=== PATIENT | female | born 1990 | race African-American/Black ===

== ENCOUNTER 2021-03-23 15:51 | Observation (INO) | payer MEDICAID ==
[2021-03-23] MEDS ORDERED: Ondansetron 4 MG/2 ML SDV IVPUSH ONE (15:57)
[2021-03-23] MEDS ORDERED: Sodium Chloride 0.9% 1,000 ML IV ONE (15:57)
[2021-03-23] MEDS ORDERED: Promethazine 25 MG/ML SDV IM ONE (16:20)
[2021-03-23 16:25] LABS: ANION GAP 12.6 meq/L (7-15); CHLORIDE,CL 101 mmol/L (98-107); SODIUM,NA 135 mmol/L (136-145)
[2021-03-23] MEDS ORDERED: Potassium Chloride 10 MEQ Tab.ER PO ONE ×3 (16:56→21:00)
[2021-03-23] MEDS ORDERED: Magnesium Oxide 400 MG Tab PO ONE ×2 (16:57→20:00)
--- NOTE | 2021-03-23 17:04 | EDM.PDOC ---
ED HPI GENERAL MEDICAL PROBLEM - General Chief Complaint: Gastrointestinal Problem Stated Complaint: nausea/vomiting Time Seen by Provider: 03/23/21 16:13 Source of Information: Reports: Patient History Limitations: Reports: No Limitations - History of Present Illness INITIAL COMMENTS - FREE TEXT/NARRATIVE: Patient comes to ER with complaints of nausea/emesis over past week. Much worse yesterday and today. Diaphoretic when vomiting. No fever. Single loose stool today. No URI complaints. No UTI complaints. No abdominal pain/flank pain. No other acute changes reported. - Related Data Allergies Allergy/AdvReac Type Severity Reaction Status Date / Time No Known Allergies Allergy Verified 03/23/21 16:23 Home Meds: Home Meds Naltrexone 50 mg PO DAILY 03/23/21 [History] PARoxetine HCl [Paxil] 40 mg PO DAILY 03/23/21 [History] PARoxetine [Paxil] 10 mg PO DAILY 03/23/21 [History] Past Medical History Psychiatric History: Reports: Anxiety, Depression, PTSD Endocrine/Metabolic History: Reports: Obesity/BMI 30+ ED ROS GENERAL - Review of Systems Review Of Systems: See Below Constitutional: Reports: Malaise, Diaphoresis, Decreased Appetite. Denies: Fever, Chills, Weakness, Fatigue, Night Sweats HEENT: Reports: No Symptoms Respiratory: Reports: No Symptoms Cardiovascular: Reports: No Symptoms GI/Abdominal: Reports: Diarrhea, Nausea, Vomiting. Denies: Abdominal Pain, Black Stool, Bloody Stool, Constipation, Hematemesis Musculoskeletal: Reports: No Symptoms Skin: Reports: No Symptoms Neurological: Reports: No Symptoms Psychiatric: Reports: No Symptoms Hematologic/Lymphatic: Reports: No Symptoms Immunologic: Reports: No Symptoms ED EXAM, GENERAL - Physical Exam Exam: See Below Exam Limited By: No Limitations General Appearance: Alert, Obese, Other (actively vomiting) Eye Exam: Bilateral Eye: EOMI, PERRL Ears: Hearing Grossly Normal Nose: No: Nasal Deformity, Nasal Swelling, Nasal Drainage Throat/Mouth: Normal Lips, Normal Voice, No Airway Compromise Head: Atraumatic, Normocephalic Neck: Supple, Non-Tender, Full Range of Motion Respiratory/Chest: No Respiratory Distress, Lungs Clear, Normal Breath Sounds, No Accessory Muscle Use, Chest Non-Tender Cardiovascular: Regular Rate, Rhythm, No Murmur GI/Abdominal: Soft, Non-Tender, No Distention, Abnormal Bowel Sounds (diminished throughout) (Female) Exam: Deferred Rectal (Female) Exam: Deferred Back Exam: Normal Inspection Extremities: Normal Inspection Neurological: Alert, Oriented, Normal Cognition, Normal Gait, No Motor/Sensory Deficits Psychiatric: Normal Affect, Normal Mood Skin Exam: Warm, Dry, Intact, Normal Color Course - Orders/Labs/Meds Orders: Active Orders 24 hr Category Date Time Status Communication Order [RC] STAT Care 03/23/21 16:20 Ordered CORONAVIRUS COVID-19 ALBERTO [MOLEC] Stat Lab 03/23/21 16:25 Received Magnesium Oxide Med 03/23/21 16:57 Once 400 mg PO ONETIME ONE Potassium Chloride [Klor-Con 10] Med 03/23/21 16:56 Once 20 meq PO ONETIME ONE Sodium Chloride 0.9% [Saline Flush] Med 03/23/21 15:57 Active 10 ml FLUSH ASDIRECTED PRN Saline Lock Insert [OM.PC] Routine Oth 03/23/21 15:57 Ordered Medication Orders Sodium Chloride (Sodium Chloride 0.9% 10 Ml Syringe) 10 ml FLUSH ASDIRECTED PRN PRN Reason: Keep Vein Open Labs: Laboratory Tests 03/23/21 03/23/21 03/23/21 Range/Units 16:05 16:05 16:28 WBC 10.3 H (4.0-10.2) K/uL RBC 4.82 (3.77-5.09) M/uL Hgb 13.3 (11.7-15.5) g/dL Hct 39.2 (34.0-46.0) % MCV 81.3 L (84.0-98.0) fL MCH 27.6 L (28.2-33.3) pg MCHC 33.9 (31.7-36.0) g/dL RDW 12.7 (11.2-14.1) % Plt Count 296 (150-350) K/uL Neut % (Auto) 67.9 (45.0-80.0) % Lymph % (Auto) 23.1 (10.0-50.0) % [place] % (Auto) 8.7 (2.0-14.0) % Eos % (Auto) 0.1 (0.0-5.0) % Baso % (Auto) 0.2 (0.0-2.0) % Neut # (Auto) 7.01 H (1.40-7.00) K/uL Lymph # (Auto) 2.38 (0.50-3.50) K/uL [place] # (Auto) 0.90 (0.00-1.00) K/uL Eos # (Auto) 0.01 (0.00-0.50) K/uL Baso # (Auto) 0.02 (0.00-0.20) K/uL Sodium 135 L (136-145) mmol/L Potassium 3.2 L (3.5-5.1) mmol/L Chloride 101 (98-107) mmol/L Carbon Dioxide 24.6 (21.0-32.0) mmol/L Anion Gap 12.6 (7-15) meq/L BUN 7 (7-18) mg/dL Creatinine 0.71 (0.51-1.17) mg/dL Est Cr Clr Drug Dosing TNP Estimated GFR (MDRD) > 60 mL/min Glucose 109 H (70-99) mg/dL Calcium 9.4 (8.5-10.1) mg/dL Magnesium 1.7 L (1.8-2.4) mg/dL Total Bilirubin 0.7 (0.2-1.0) mg/dL AST 12 L (15-37) U/L ALT 18 (12-78) U/L Alkaline Phosphatase 82 (46-116) IU/L Total Protein 8.8 H (6.4-8.2) g/dL Albumin 4.2 (3.4-5.0) g/dL Specimen Type Urinvoid Urine Color Dark yellow Urine Appearance Cloudy Urine pH 5.5 (5.0-9.0) Ur Specific [place] >= 1.030 (1.005-1.030) Urine Protein >=300 H (NEGATIVE) mg/dL Urine Glucose (UA) Negative (NEGATIVE) mg/dL Urine Ketones 80 H (NEGATIVE) mg/dL Urine Occult Blood Moderate H (NEGATIVE) Urine Nitrite Negative (NEGATIVE) Urine Bilirubin Small H (NEGATIVE) Urine Urobilinogen 1.0 (0.2-1.0) E.U./dL Ur Leukocyte Esterase Negative (NEGATIVE) Urine RBC 5-10 H /HPF Urine WBC 0-5 /HPF Ur Epithelial Cells Many H /LPF Urine Bacteria Many H (NONE TO FEW) /HPF Urine HCG, Qual 03/23/21 Range/Units 16:28 WBC (4.0-10.2) K/uL RBC (3.77-5.09) M/uL Hgb (11.7-15.5) g/dL Hct (34.0-46.0) % MCV (84.0-98.0) fL MCH (28.2-33.3) pg MCHC (31.7-36.0) g/dL RDW (11.2-14.1) % Plt Count (150-350) K/uL Neut % (Auto) (45.0-80.0) % Lymph % (Auto) (10.0-50.0) % [place] % (Auto) (2.0-14.0) % Eos % (Auto) (0.0-5.0) % Baso % (Auto) (0.0-2.0) % Neut # (Auto) (1.40-7.00) K/uL Lymph # (Auto) (0.50-3.50) K/uL [place] # (Auto) (0.00-1.00) K/uL Eos # (Auto) (0.00-0.50) K/uL Baso # (Auto) (0.00-0.20) K/uL Sodium (136-145) mmol/L Potassium (3.5-5.1) mmol/L Chloride (98-107) mmol/L Carbon Dioxide (21.0-32.0) mmol/L Anion Gap (7-15) meq/L BUN (7-18) mg/dL Creatinine (0.51-1.17) mg/dL Est Cr Clr Drug Dosing Estimated GFR (MDRD) mL/min Glucose (70-99) mg/dL Calcium (8.5-10.1) mg/dL Magnesium (1.8-2.4) mg/dL Total Bilirubin (0.2-1.0) mg/dL AST (15-37) U/L ALT (12-78) U/L Alkaline Phosphatase (46-116) IU/L Total Protein (6.4-8.2) g/dL Albumin (3.4-5.0) g/dL Specimen Type Urine Color Urine Appearance Urine pH (5.0-9.0) Ur Specific [place] (1.005-1.030) Urine Protein (NEGATIVE) mg/dL Urine Glucose (UA) (NEGATIVE) mg/dL Urine Ketones (NEGATIVE) mg/dL Urine Occult Blood (NEGATIVE) Urine Nitrite (NEGATIVE) Urine Bilirubin (NEGATIVE) Urine Urobilinogen (0.2-1.0) E.U./dL Ur Leukocyte Esterase (NEGATIVE) Urine RBC /HPF Urine WBC /HPF Ur Epithelial Cells /LPF Urine Bacteria (NONE TO FEW) /HPF Urine HCG, Qual Positive Meds: Medications Generic Name Dose Route Start Last Admin Trade Name Freq PRN Reason Stop Dose Admin Sodium Chloride 10 ml 03/23/21 15:57 Sodium Chloride 0.9% 10 Ml Syringe FLUSH ASDIRECTED PRN Keep Vein Open Discontinued Medications Generic Name Dose Route Start Last Admin Trade Name Freq PRN Reason Stop Dose Admin Sodium Chloride 1,000 mls @ 999 mls/hr 03/23/21 15:57 03/23/21 16:25 Normal Saline IV 03/23/21 16:57 999 mls/hr .BOLUS ONE Administration Ondansetron HCl 4 mg 03/23/21 15:57 03/23/21 16:25 Ondansetron 4 Mg/2 Ml Sdv IVPUSH 03/23/21 15:58 4 mg ONETIME ONE Administration Promethazine HCl 25 mg 03/23/21 16:20 03/23/21 16:35 Promethazine 25 Mg/Ml Sdv IM 03/23/21 16:21 25 mg ONETIME ONE Administration - Re-Assessments/Exams Free Text/Narrative Re-Assessment/Exam: 03/23/21 17:01 IV fluids/Zofran given. Labs ordered. Phenergan added for better nausea control. Minimal elevation WBC. Mild decrease Mag/K. UA negative for UTI but did show ketones/concentrated urine. test positive. Patient recalls that only time she had sex over summer was February 18. Abdominal films canceled. Patient much improved. Suspect emesis is related to . Plan at this time is to admit observation and continue IV fluid/nausea intervention as well as work on correcting K and Mg. Departure - Departure Time of Disposition: 17:04 Disposition: Refer to Observation Condition: Good Clinical Impression: Hyperemesis of , Dehydration, Hypokalemia, Hypomagnesemia - Discharge Information *PRESCRIPTION DRUG MONITORING PROGRAM REVIEWED*: Not Applicable *COPY OF PRESCRIPTION DRUG MONITORING REPORT IN PATIENT NEREIDA: Not Applicable - Problem List & Annotations (1) Hyperemesis of SNOMED Code(s): 63783610 Code(s): O21.0 - MILD HYPEREMESIS GRAVIDARUM Status: Acute Priority: High Current Visit: Yes Onset Date: ~03/18/21 Annotation/Comment:: test positive. Last menstrual period end of January. Good response to Zofran and Phenergan. (2) Hypokalemia SNOMED Code(s): 80122020 Code(s): E87.6 - HYPOKALEMIA Status: Acute Priority: Low Current Visit: Yes Annotation/Comment:: Mildly low. Initiate oral supplementation (3) Hypomagnesemia SNOMED Code(s): 337655715 Code(s): E83.42 - HYPOMAGNESEMIA Status: Acute Priority: Low Current Visit: Yes Annotation/Comment:: Mildly low. Initiate oral supplementation (4) Dehydration SNOMED Code(s): 46682194 Code(s): E86.0 - DEHYDRATION Status: Acute Priority: High Current Visit: Yes Annotation/Comment:: IV fluids initiated in ER. (5) PTSD (post-traumatic stress disorder) SNOMED Code(s): 20205632 Code(s): F43.10 - POST-TRAUMATIC STRESS DISORDER, UNSPECIFIED Status: Chronic Priority: Low Current Visit: No Annotation/Comment:: under therapy (6) Obesity SNOMED Code(s): 062181403, 039707898 Code(s): E66.9 - OBESITY, UNSPECIFIED Status: Chronic Priority: Low Current Visit: Yes (7) Depression with anxiety SNOMED Code(s): 205588060 Code(s): F41.8 - OTHER SPECIFIED ANXIETY DISORDERS Status: Chronic Priority: Low Current Visit: No Annotation/Comment:: under therapy - Problem List Review Problem List Initiated/Reviewed/Updated: Yes - My Orders Last 24 Hours: My Active Orders 03/23/21 15:57 Sodium Chloride 0.9% [Saline Flush] 10 ml FLUSH ASDIRECTED PRN Saline Lock Insert [OM.PC] Routine 03/23/21 16:20 Communication Order [RC] STAT 03/23/21 16:25 CORONAVIRUS COVID-19 ALBERTO [MOLEC] Stat 03/23/21 16:56 Potassium Chloride [Klor-Con 10] 20 meq PO ONETIME ONE 03/23/21 16:57 Magnesium Oxide 400 mg PO ONETIME ONE - Assessment/Plan Admission H&P: Please use this note as an admission H&P Last 24 Hours: My Active Orders 03/23/21 15:57 Sodium Chloride 0.9% [Saline Flush] 10 ml FLUSH ASDIRECTED PRN Saline Lock Insert [OM.PC] Routine 03/23/21 16:20 Communication Order [RC] STAT 03/23/21 16:25 CORONAVIRUS COVID-19 ALBERTO [MOLEC] Stat 03/23/21 16:56 Potassium Chloride [Klor-Con 10] 20 meq PO ONETIME ONE 03/23/21 16:57 Magnesium Oxide 400 mg PO ONETIME ONE Assessment:: Nausea/emesis/dehydration in patient with newly identified . Plan: Plan as above. Patient stable and suitable for general supervision. Anticipate probably discharge tomorrow.
[2021-03-23] MEDS ORDERED: Promethazine 25 MG/ML SDV IM PRN (17:20)
[2021-03-23] MEDS ORDERED: Promethazine 25 MG Tab PO SCH (17:30)
[2021-03-23] MEDS: Sodium Chloride 0.9% 1,000 ML IV SCH (17:50)
[2021-03-23] MEDS: Sodium Chloride 0.9% 10 ML Syringe FLUSH PRN (17:50)
[2021-03-23] MEDS: Prochlorperazine 10 MG/2 ML SDV IVPUSH PRN (19:49)
[2021-03-23] MEDS ORDERED: Promethazine 25 MG Tab PO PRN (22:30)
[2021-03-23] MEDS: Promethazine 25 MG Tab PO SCH (22:47)
[2021-03-24] MEDS ORDERED: diphenhydrAMINE 50 MG/ML SDV IVPUSH PRN (02:29)
[2021-03-24] MEDS: Sodium Chloride 0.9% 1,000 ML IV SCH (03:42)
[2021-03-24] MEDS ORDERED: Magnesium Oxide 400 MG Tab PO ONE (06:00)
[2021-03-24] MEDS ORDERED: Potassium Chloride 10 MEQ Tab.ER PO ONE (06:00)
[2021-03-24] MEDS: Promethazine 25 MG Tab PO SCH (06:08)
[2021-03-24] MEDS ORDERED: Calcium Carbonate 750 MG Tab.Chew PO PRN (06:17)
[2021-03-24] MEDS: Prochlorperazine 10 MG/2 ML SDV IVPUSH PRN (07:39)
[2021-03-24 08:02] LABS: ANION GAP 5.8 meq/L (7-15); CHLORIDE,CL 106 mmol/L (98-107); SODIUM,NA 138 mmol/L (136-145)
--- NOTE | 2021-03-24 10:47 | PCM.PN ---
- General Info Date of Service: 03/24/21 Admission Dx/Problem (Free Text): Pt. was admitted with first trimester hyperemesis and dehydration. Pt. was rehydrated with several 2 liters of NS overnight. Overall, pt. reports that she is feeling much better, but is still quite nauseated when she sits up or stands. Pt. states that she has not been experiencing any fever or chills. No chest pain or shortness of breath. She has not attempted to eat at this point. Nausea/vomiting is being managed with IV compazine. Functional Status: Reports: Pain Controlled. Denies: Tolerating Diet - Review of Systems General: Reports: No Symptoms HEENT: Reports: No Symptoms Pulmonary: Reports: No Symptoms Gastrointestinal: Reports: Decreased Appetite, Nausea, Vomiting. Denies: Abdominal Pain, Constipation, Diarrhea, Hematochezia, Melena Genitourinary: Reports: No Symptoms Musculoskeletal: Reports: No Symptoms Skin: Reports: No Symptoms Neurological: Reports: No Symptoms Psychiatric: Reports: No Symptoms - Patient Data Vitals - Most Recent: Last Vital Signs Temp 36.1 C 03/24/21 07:40 Pulse 64 03/24/21 07:40 Resp 16 03/24/21 07:40 BP 109/77 03/24/21 07:40 Pulse Ox 100 03/24/21 07:40 Weight - Most Recent: 99.79 kg I&O - Last 24 Hours: Intake & Output 03/23/21 03/24/21 03/24/21 22:59 06:59 14:59 Intake Total 1520 Balance 1520 Lab Results Last 24 Hours: Laboratory Results - last 24 hr 03/23/21 03/23/21 03/23/21 Range/Units 16:05 16:05 16:25 WBC 10.3 H (4.0-10.2) K/uL RBC 4.82 (3.77-5.09) M/uL Hgb 13.3 (11.7-15.5) g/dL Hct 39.2 (34.0-46.0) % MCV 81.3 L (84.0-98.0) fL MCH 27.6 L (28.2-33.3) pg MCHC 33.9 (31.7-36.0) g/dL RDW 12.7 (11.2-14.1) % Plt Count 296 (150-350) K/uL Neut % (Auto) 67.9 (45.0-80.0) % Lymph % (Auto) 23.1 (10.0-50.0) % [place] % (Auto) 8.7 (2.0-14.0) % Eos % (Auto) 0.1 (0.0-5.0) % Baso % (Auto) 0.2 (0.0-2.0) % Neut # (Auto) 7.01 H (1.40-7.00) K/uL Lymph # (Auto) 2.38 (0.50-3.50) K/uL [place] # (Auto) 0.90 (0.00-1.00) K/uL Eos # (Auto) 0.01 (0.00-0.50) K/uL Baso # (Auto) 0.02 (0.00-0.20) K/uL Sodium 135 L (136-145) mmol/L Potassium 3.2 L (3.5-5.1) mmol/L Chloride 101 (98-107) mmol/L Carbon Dioxide 24.6 (21.0-32.0) mmol/L Anion Gap 12.6 (7-15) meq/L BUN 7 (7-18) mg/dL Creatinine 0.71 (0.51-1.17) mg/dL Est Cr Clr Drug Dosing TNP Estimated GFR (MDRD) > 60 mL/min Glucose 109 H (70-99) mg/dL Calcium 9.4 (8.5-10.1) mg/dL Magnesium 1.7 L (1.8-2.4) mg/dL Total Bilirubin 0.7 (0.2-1.0) mg/dL AST 12 L (15-37) U/L ALT 18 (12-78) U/L Alkaline Phosphatase 82 (46-116) IU/L Total Protein 8.8 H (6.4-8.2) g/dL Albumin 4.2 (3.4-5.0) g/dL Specimen Type Urine Color Urine Appearance Urine pH (5.0-9.0) Ur Specific [place] (1.005-1.030) Urine Protein (NEGATIVE) mg/dL Urine Glucose (UA) (NEGATIVE) mg/dL Urine Ketones (NEGATIVE) mg/dL Urine Occult Blood (NEGATIVE) Urine Nitrite (NEGATIVE) Urine Bilirubin (NEGATIVE) Urine Urobilinogen (0.2-1.0) E.U./dL Ur Leukocyte Esterase (NEGATIVE) Urine RBC /HPF Urine WBC /HPF Ur Epithelial Cells /LPF Urine Bacteria (NONE TO FEW) /HPF Urine HCG, Qual SARS-CoV-2 RNA (ALBERTO) Negative (NEGATIVE) 03/23/21 03/23/21 03/24/21 Range/Units 16:28 16:28 07:25 WBC 8.1 (4.0-10.2) K/uL RBC 4.06 (3.77-5.09) M/uL Hgb 11.2 L D (11.7-15.5) g/dL Hct 33.6 L (34.0-46.0) % MCV 82.8 L (84.0-98.0) fL MCH 27.6 L (28.2-33.3) pg MCHC 33.3 (31.7-36.0) g/dL RDW 12.4 (11.2-14.1) % Plt Count 242 (150-350) K/uL Neut % (Auto) 54.9 (45.0-80.0) % Lymph % (Auto) 35.2 (10.0-50.0) % [place] % (Auto) 9.3 (2.0-14.0) % Eos % (Auto) 0.4 (0.0-5.0) % Baso % (Auto) 0.2 (0.0-2.0) % Neut # (Auto) 4.42 (1.40-7.00) K/uL Lymph # (Auto) 2.84 (0.50-3.50) K/uL [place] # (Auto) 0.75 (0.00-1.00) K/uL Eos # (Auto) 0.03 (0.00-0.50) K/uL Baso # (Auto) 0.02 (0.00-0.20) K/uL Sodium (136-145) mmol/L Potassium (3.5-5.1) mmol/L Chloride (98-107) mmol/L Carbon Dioxide (21.0-32.0) mmol/L Anion Gap (7-15) meq/L BUN (7-18) mg/dL Creatinine (0.51-1.17) mg/dL Est Cr Clr Drug Dosing Estimated GFR (MDRD) mL/min Glucose (70-99) mg/dL Calcium (8.5-10.1) mg/dL Magnesium (1.8-2.4) mg/dL Total Bilirubin (0.2-1.0) mg/dL AST (15-37) U/L ALT (12-78) U/L Alkaline Phosphatase (46-116) IU/L Total Protein (6.4-8.2) g/dL Albumin (3.4-5.0) g/dL Specimen Type Urinvoid Urine Color Dark yellow Urine Appearance Cloudy Urine pH 5.5 (5.0-9.0) Ur Specific [place] >= 1.030 (1.005-1.030) Urine Protein >=300 H (NEGATIVE) mg/dL Urine Glucose (UA) Negative (NEGATIVE) mg/dL Urine Ketones 80 H (NEGATIVE) mg/dL Urine Occult Blood Moderate H (NEGATIVE) Urine Nitrite Negative (NEGATIVE) Urine Bilirubin Small H (NEGATIVE) Urine Urobilinogen 1.0 (0.2-1.0) E.U./dL Ur Leukocyte Esterase Negative (NEGATIVE) Urine RBC 5-10 H /HPF Urine WBC 0-5 /HPF Ur Epithelial Cells Many H /LPF Urine Bacteria Many H (NONE TO FEW) /HPF Urine HCG, Qual Positive SARS-CoV-2 RNA (ALBERTO) (NEGATIVE) 03/24/21 Range/Units 07:25 WBC (4.0-10.2) K/uL RBC (3.77-5.09) M/uL Hgb (11.7-15.5) g/dL Hct (34.0-46.0) % MCV (84.0-98.0) fL MCH (28.2-33.3) pg MCHC (31.7-36.0) g/dL RDW (11.2-14.1) % Plt Count (150-350) K/uL Neut % (Auto) (45.0-80.0) % Lymph % (Auto) (10.0-50.0) % [place] % (Auto) (2.0-14.0) % Eos % (Auto) (0.0-5.0) % Baso % (Auto) (0.0-2.0) % Neut # (Auto) (1.40-7.00) K/uL Lymph # (Auto) (0.50-3.50) K/uL [place] # (Auto) (0.00-1.00) K/uL Eos # (Auto) (0.00-0.50) K/uL Baso # (Auto) (0.00-0.20) K/uL Sodium 138 (136-145) mmol/L Potassium 3.9 (3.5-5.1) mmol/L Chloride 106 (98-107) mmol/L Carbon Dioxide 26.2 (21.0-32.0) mmol/L Anion Gap 5.8 L (7-15) meq/L BUN 5 L (7-18) mg/dL Creatinine 0.60 (0.51-1.17) mg/dL Est Cr Clr Drug Dosing 123.37 Estimated GFR (MDRD) > 60 mL/min Glucose 111 H (70-99) mg/dL Calcium 8.5 (8.5-10.1) mg/dL Magnesium 1.8 (1.8-2.4) mg/dL Total Bilirubin (0.2-1.0) mg/dL AST (15-37) U/L ALT (12-78) U/L Alkaline Phosphatase (46-116) IU/L Total Protein (6.4-8.2) g/dL Albumin (3.4-5.0) g/dL Specimen Type Urine Color Urine Appearance Urine pH (5.0-9.0) Ur Specific [place] (1.005-1.030) Urine Protein (NEGATIVE) mg/dL Urine Glucose (UA) (NEGATIVE) mg/dL Urine Ketones (NEGATIVE) mg/dL Urine Occult Blood (NEGATIVE) Urine Nitrite (NEGATIVE) Urine Bilirubin (NEGATIVE) Urine Urobilinogen (0.2-1.0) E.U./dL Ur Leukocyte Esterase (NEGATIVE) Urine RBC /HPF Urine WBC /HPF Ur Epithelial Cells /LPF Urine Bacteria (NONE TO FEW) /HPF Urine HCG, Qual SARS-CoV-2 RNA (ALBERTO) (NEGATIVE) Med Orders - Current: Current Medications Calcium Carbonate/Glycine (Calcium Carbonate 750 Mg Tab.Chew) 750 mg PO Q2HR PRN PRN Reason: Indigestion Last Admin: 03/24/21 06:57 Dose: 750 mg Documented by: Diphenhydramine HCl (Diphenhydramine 50 Mg/Ml Sdv) 50 mg IVPUSH BEDTIME PRN PRN Reason: Insomnia Diphenhydramine HCl (Diphenhydramine 50 Mg/Ml Sdv) 25 mg IVPUSH Q6H [facility] Sodium Chloride (Normal Saline) 1,000 mls @ 125 mls/hr IV ASDIRECTED [facility] Stop: 03/25/21 01:29 Last Admin: 03/24/21 03:42 Dose: 125 mls/hr Documented by: Metoclopramide HCl (Metoclopramide 10 Mg/2 Ml Sdv) 5 mg IVPUSH Q6H [facility] Prochlorperazine Edisylate (Prochlorperazine 10 Mg/2 Ml Sdv) 5 mg IVPUSH Q6H PRN PRN Reason: Nausea Last Admin: 03/24/21 07:39 Dose: 5 mg Documented by: Promethazine HCl (Promethazine 25 Mg/Ml Sdv) 25 mg IM Q6H PRN PRN Reason: Vomiting Sodium Chloride (Sodium Chloride 0.9% 10 Ml Syringe) 10 ml FLUSH ASDIRECTED PRN PRN Reason: Keep Vein Open Last Admin: 03/23/21 17:50 Dose: 10 ml Documented by: Discontinued Medications Sodium Chloride (Normal Saline) 1,000 mls @ 999 mls/hr IV .BOLUS ONE Stop: 03/23/21 16:57 Last Admin: 03/23/21 16:25 Dose: 999 mls/hr Documented by: Magnesium Oxide (Magnesium Oxide 400 Mg Tab) 400 mg PO ONETIME ONE Stop: 03/23/21 16:58 Last Admin: 03/23/21 17:32 Dose: 400 mg Documented by: Magnesium Oxide (Magnesium Oxide 400 Mg Tab) 400 mg PO ONETIME ONE Stop: 03/23/21 20:01 Last Admin: 03/23/21 19:05 Dose: 400 mg Documented by: Magnesium Oxide (Magnesium Oxide 400 Mg Tab) 400 mg PO ONETIME ONE Stop: 03/24/21 06:01 Last Admin: 03/24/21 06:07 Dose: 400 mg Documented by: Ondansetron HCl (Ondansetron 4 Mg/2 Ml Sdv) 4 mg IVPUSH ONETIME ONE Stop: 03/23/21 15:58 Last Admin: 03/23/21 16:25 Dose: 4 mg Documented by: Potassium Chloride (Potassium Chloride 10 Meq Tab.Er) 20 meq PO ONETIME ONE Stop: 03/23/21 16:57 Last Admin: 03/23/21 17:32 Dose: 20 meq Documented by: Potassium Chloride (Potassium Chloride 10 Meq Tab.Er) 20 meq PO ONETIME ONE Stop: 03/23/21 19:01 Last Admin: 03/23/21 19:05 Dose: 20 meq Documented by: Potassium Chloride (Potassium Chloride 10 Meq Tab.Er) 20 meq PO ONETIME ONE Stop: 03/23/21 21:01 Last Admin: 03/23/21 22:42 Dose: 20 meq Documented by: Potassium Chloride (Potassium Chloride 10 Meq Tab.Er) 20 meq PO ONETIME ONE Stop: 03/24/21 06:01 Last Admin: 03/24/21 06:08 Dose: 20 meq Documented by: Promethazine HCl (Promethazine 25 Mg/Ml Sdv) 25 mg IM ONETIME ONE Stop: 03/23/21 16:21 Last Admin: 03/23/21 16:35 Dose: 25 mg Documented by: Promethazine HCl (Promethazine 25 Mg Tab) 25 mg PO Q6H [facility] Stop: 03/23/21 23:31 Last Admin: 03/23/21 18:40 Dose: Not Given Documented by: Promethazine HCl (Promethazine 25 Mg Tab) 25 mg PO Q6H PRN PRN Reason: Nausea/Vomiting Last Admin: 03/23/21 22:43 Dose: 25 mg Documented by: Promethazine HCl (Promethazine 25 Mg Tab) 25 mg PO Q6H [facility] Stop: 03/24/21 04:46 Last Admin: 03/24/21 06:08 Dose: 25 mg Documented by: - Exam General: Alert, Oriented Lungs: Clear to Auscultation, Normal Respiratory Effort Cardiovascular: Regular Rate, Regular Rhythm GI/Abdominal Exam: Normal Bowel Sounds, Non-Tender, No Distention, No Mass (Female) Exam: Deferred Back Exam: Normal Inspection, Full Range of Motion Extremities: Normal Inspection, Normal Range of Motion, Non-Tender, No Pedal Edema, Normal Capillary Refill Peripheral Pulses: 4+: Radial (R) Skin: Warm, Dry, Intact Neurological: No New Focal Deficit, Normal Gait Psy/Mental Status: Alert, Normal Affect, Normal Mood - Patient Data Lab Results Last 24 hrs: Laboratory Results - last 24 hr 03/23/21 03/23/21 03/23/21 Range/Units 16:05 16:05 16:25 WBC 10.3 H (4.0-10.2) K/uL RBC 4.82 (3.77-5.09) M/uL Hgb 13.3 (11.7-15.5) g/dL Hct 39.2 (34.0-46.0) % MCV 81.3 L (84.0-98.0) fL MCH 27.6 L (28.2-33.3) pg MCHC 33.9 (31.7-36.0) g/dL RDW 12.7 (11.2-14.1) % Plt Count 296 (150-350) K/uL Neut % (Auto) 67.9 (45.0-80.0) % Lymph % (Auto) 23.1 (10.0-50.0) % [place] % (Auto) 8.7 (2.0-14.0) % Eos % (Auto) 0.1 (0.0-5.0) % Baso % (Auto) 0.2 (0.0-2.0) % Neut # (Auto) 7.01 H (1.40-7.00) K/uL Lymph # (Auto) 2.38 (0.50-3.50) K/uL [place] # (Auto) 0.90 (0.00-1.00) K/uL Eos # (Auto) 0.01 (0.00-0.50) K/uL Baso # (Auto) 0.02 (0.00-0.20) K/uL Sodium 135 L (136-145) mmol/L Potassium 3.2 L (3.5-5.1) mmol/L Chloride 101 (98-107) mmol/L Carbon Dioxide 24.6 (21.0-32.0) mmol/L Anion Gap 12.6 (7-15) meq/L BUN 7 (7-18) mg/dL Creatinine 0.71 (0.51-1.17) mg/dL Est Cr Clr Drug Dosing TNP Estimated GFR (MDRD) > 60 mL/min Glucose 109 H (70-99) mg/dL Calcium 9.4 (8.5-10.1) mg/dL Magnesium 1.7 L (1.8-2.4) mg/dL Total Bilirubin 0.7 (0.2-1.0) mg/dL AST 12 L (15-37) U/L ALT 18 (12-78) U/L Alkaline Phosphatase 82 (46-116) IU/L Total Protein 8.8 H (6.4-8.2) g/dL Albumin 4.2 (3.4-5.0) g/dL Specimen Type Urine Color Urine Appearance Urine pH (5.0-9.0) Ur Specific [place] (1.005-1.030) Urine Protein (NEGATIVE) mg/dL Urine Glucose (UA) (NEGATIVE) mg/dL Urine Ketones (NEGATIVE) mg/dL Urine Occult Blood (NEGATIVE) Urine Nitrite (NEGATIVE) Urine Bilirubin (NEGATIVE) Urine Urobilinogen (0.2-1.0) E.U./dL Ur Leukocyte Esterase (NEGATIVE) Urine RBC /HPF Urine WBC /HPF Ur Epithelial Cells /LPF Urine Bacteria (NONE TO FEW) /HPF Urine HCG, Qual SARS-CoV-2 RNA (ALBERTO) Negative (NEGATIVE) 03/23/21 03/23/21 03/24/21 Range/Units 16:28 16:28 07:25 WBC 8.1 (4.0-10.2) K/uL RBC 4.06 (3.77-5.09) M/uL Hgb 11.2 L D (11.7-15.5) g/dL Hct 33.6 L (34.0-46.0) % MCV 82.8 L (84.0-98.0) fL MCH 27.6 L (28.2-33.3) pg MCHC 33.3 (31.7-36.0) g/dL RDW 12.4 (11.2-14.1) % Plt Count 242 (150-350) K/uL Neut % (Auto) 54.9 (45.0-80.0) % Lymph % (Auto) 35.2 (10.0-50.0) % [place] % (Auto) 9.3 (2.0-14.0) % Eos % (Auto) 0.4 (0.0-5.0) % Baso % (Auto) 0.2 (0.0-2.0) % Neut # (Auto) 4.42 (1.40-7.00) K/uL Lymph # (Auto) 2.84 (0.50-3.50) K/uL [place] # (Auto) 0.75 (0.00-1.00) K/uL Eos # (Auto) 0.03 (0.00-0.50) K/uL Baso # (Auto) 0.02 (0.00-0.20) K/uL Sodium (136-145) mmol/L Potassium (3.5-5.1) mmol/L Chloride (98-107) mmol/L Carbon Dioxide (21.0-32.0) mmol/L Anion Gap (7-15) meq/L BUN (7-18) mg/dL Creatinine (0.51-1.17) mg/dL Est Cr Clr Drug Dosing Estimated GFR (MDRD) mL/min Glucose (70-99) mg/dL Calcium (8.5-10.1) mg/dL Magnesium (1.8-2.4) mg/dL Total Bilirubin (0.2-1.0) mg/dL AST (15-37) U/L ALT (12-78) U/L Alkaline Phosphatase (46-116) IU/L Total Protein (6.4-8.2) g/dL Albumin (3.4-5.0) g/dL Specimen Type Urinvoid Urine Color Dark yellow Urine Appearance Cloudy Urine pH 5.5 (5.0-9.0) Ur Specific [place] >= 1.030 (1.005-1.030) Urine Protein >=300 H (NEGATIVE) mg/dL Urine Glucose (UA) Negative (NEGATIVE) mg/dL Urine Ketones 80 H (NEGATIVE) mg/dL Urine Occult Blood Moderate H (NEGATIVE) Urine Nitrite Negative (NEGATIVE) Urine Bilirubin Small H (NEGATIVE) Urine Urobilinogen 1.0 (0.2-1.0) E.U./dL Ur Leukocyte Esterase Negative (NEGATIVE) Urine RBC 5-10 H /HPF Urine WBC 0-5 /HPF Ur Epithelial Cells Many H /LPF Urine Bacteria Many H (NONE TO FEW) /HPF Urine HCG, Qual Positive SARS-CoV-2 RNA (ALBERTO) (NEGATIVE) 03/24/21 Range/Units 07:25 WBC (4.0-10.2) K/uL RBC (3.77-5.09) M/uL Hgb (11.7-15.5) g/dL Hct (34.0-46.0) % MCV (84.0-98.0) fL MCH (28.2-33.3) pg MCHC (31.7-36.0) g/dL RDW (11.2-14.1) % Plt Count (150-350) K/uL Neut % (Auto) (45.0-80.0) % Lymph % (Auto) (10.0-50.0) % [place] % (Auto) (2.0-14.0) % Eos % (Auto) (0.0-5.0) % Baso % (Auto) (0.0-2.0) % Neut # (Auto) (1.40-7.00) K/uL Lymph # (Auto) (0.50-3.50) K/uL [place] # (Auto) (0.00-1.00) K/uL Eos # (Auto) (0.00-0.50) K/uL Baso # (Auto) (0.00-0.20) K/uL Sodium 138 (136-145) mmol/L Potassium 3.9 (3.5-5.1) mmol/L Chloride 106 (98-107) mmol/L Carbon Dioxide 26.2 (21.0-32.0) mmol/L Anion Gap 5.8 L (7-15) meq/L BUN 5 L (7-18) mg/dL Creatinine 0.60 (0.51-1.17) mg/dL Est Cr Clr Drug Dosing 123.37 Estimated GFR (MDRD) > 60 mL/min Glucose 111 H (70-99) mg/dL Calcium 8.5 (8.5-10.1) mg/dL Magnesium 1.8 (1.8-2.4) mg/dL Total Bilirubin (0.2-1.0) mg/dL AST (15-37) U/L ALT (12-78) U/L Alkaline Phosphatase (46-116) IU/L Total Protein (6.4-8.2) g/dL Albumin (3.4-5.0) g/dL Specimen Type Urine Color Urine Appearance Urine pH (5.0-9.0) Ur Specific [place] (1.005-1.030) Urine Protein (NEGATIVE) mg/dL Urine Glucose (UA) (NEGATIVE) mg/dL Urine Ketones (NEGATIVE) mg/dL Urine Occult Blood (NEGATIVE) Urine Nitrite (NEGATIVE) Urine Bilirubin (NEGATIVE) Urine Urobilinogen (0.2-1.0) E.U./dL Ur Leukocyte Esterase (NEGATIVE) Urine RBC /HPF Urine WBC /HPF Ur Epithelial Cells /LPF Urine Bacteria (NONE TO FEW) /HPF Urine HCG, Qual SARS-CoV-2 RNA (ALBERTO) (NEGATIVE) Result Diagrams: 03/24/21 07:25 03/24/21 07:25 Sepsis Event Note - Evaluation Sepsis Screening Result: No Definite Risk - Focused Exam Vital Signs: Vital Signs Temp Pulse Resp BP Pulse Ox 03/24/21 07:40 36.1 C 64 16 109/77 100 03/24/21 06:00 35.8 C L 73 21 H 150/120 H 98 03/24/21 00:00 35.5 C L 71 20 100/58 L 100 - Problem List Review Problem List Initiated/Reviewed/Updated: Yes - My Orders Last 24 Hours: My Active Orders 03/24/21 10:45 Metoclopramide [Reglan] 5 mg IVPUSH Q6H diphenhydrAMINE [Benadryl] 25 mg IVPUSH Q6H - Plan Plan:: Will add reglan 5mg IV every 6 hours. Also will start IV diphenhydramine 25mg every 6 hours to decrease extrapyramidal effects of the medications. Advised slowing increasing oral intact. Will keep the patient admitted observation today. Anticipate discharge tomorrow once nausea and vomiting are controlled. Pt. is aware of her plan of care.
[2021-03-24] MEDS: Metoclopramide 10 MG/2 ML SDV IVPUSH SCH ×2 (11:00→16:33)
[2021-03-24] MEDS: diphenhydrAMINE 50 MG/ML SDV IVPUSH SCH ×2 (11:01→16:33)
[2021-03-24] MEDS: Sodium Chloride 0.9% 10 ML Syringe FLUSH PRN (11:04)
[2021-03-24] MEDS ORDERED: Sodium Chloride 0.9% 1,000 ML IV SCH (12:00)
--- NOTE | 2021-03-25 21:00 | PCM.DCSUM1 ---
Discharge Summary - Hospital Course Free Text/Narrative:: Pt. was admitted on observation status on 03/23/2021 with hyperemesis gravidarum. Pt. was found to be at that time. She has yet to have an ultrasound, but thinks EDC was 02/18/2021. She is . She did not have nausea and vomiting like this with her first . Pt. was profoundly dehydrated on arrival to ER. She was given 2 liters of normal saline overnight, and was kept on IV normal saline at 150ml/hr. Nausea and vomiting was initially treated with zofran. She was transitioned to compazine and benadryl. She was hypokalemic, and her potassium was repleted intravenously. On round in the morning, she was still reporting quite a bit of nausea and vomiting when standing/walking to bathroom. She was started on reglan IV which she reports significantly improved her symptoms. Diet was advanced and she was able to hold down fluids and bland foods. She requested discharge. Diagnosis: Stroke: No - Discharge Data Discharge Date: 03/24/21 Discharge Disposition: Home, Self-Care 01 Condition: Good - Referral to Home Health Primary Care Physician: Erin Rae NP - Discharge Diagnosis/Problem(s) (1) Dehydration SNOMED Code(s): 25161491 ICD Code: E86.0 - DEHYDRATION Status: Acute Priority: High Problem Details: IV fluids initiated in ER. (2) Hyperemesis of SNOMED Code(s): 10769995 ICD Code: O21.0 - MILD HYPEREMESIS GRAVIDARUM Status: Acute Priority: High Onset Date: ~03/18/21 Problem Details: test positive. Last menstrual period end of January. Good response to Zofran and Phenergan. - Discharge Plan *PRESCRIPTION DRUG MONITORING PROGRAM REVIEWED*: Not Applicable *COPY OF PRESCRIPTION DRUG MONITORING REPORT IN PATIENT NEREIDA: Not Applicable Home Medications: Home Meds Naltrexone 50 mg PO DAILY 03/23/21 [History] PARoxetine HCl [Paxil] 40 mg PO DAILY 03/23/21 [History] PARoxetine [Paxil] 10 mg PO DAILY 03/23/21 [History] Patient Handouts: Hyperemesis Gravidarum, Dehydration, Adult, [id number], Rehydration, Adult Forms: ED Department Discharge Referrals: Butch,Erin L, [employer] [Primary Care Provider] - - Discharge Summary/Plan Comment DC Time >30 min.: Yes Discharge Summary/Plan Comment: I would suggest using vitamin B6 and doxylamine (over the counter Unisom). Take the vitamin B6 every 8 hours, doxylamine 1 tab at bedtime. You can take the doxylamine twice daily, but do not take if if you plan on operating machinery/driving. Metaclopramide 10mg every 6 hours for nausea/vomiting, if the above regimen is not working. Consume a bland diet for the next several days. Follow-up with PCP within the next week. Follow-Ups: Albert Mooney has been referred to the following clinics/specialists for follow-up care: 1. Erin Rae NP Date: [address] [place] [id number] - General Info Functional Status: Reports: Pain Controlled - Review of Systems General: Reports: No Symptoms HEENT: Reports: No Symptoms Pulmonary: Reports: No Symptoms Cardiovascular: Reports: No Symptoms Gastrointestinal: Reports: No Symptoms Genitourinary: Reports: No Symptoms Musculoskeletal: Reports: No Symptoms Skin: Reports: No Symptoms Neurological: Reports: No Symptoms Psychiatric: Reports: No Symptoms - Patient Data Vitals - Most Recent: Last Vital Signs Temp 36.4 C 03/24/21 16:41 Pulse 66 03/24/21 16:41 Resp 20 03/24/21 16:41 BP 109/76 03/24/21 16:41 Pulse Ox 100 03/24/21 16:41 Weight - Most Recent: 99.79 kg Med Orders - Current: Current Medications Discontinued Medications Calcium Carbonate/Glycine (Calcium Carbonate 750 Mg Tab.Chew) 750 mg PO Q2HR PRN PRN Reason: Indigestion Last Admin: 03/24/21 06:57 Dose: 750 mg Documented by: Diphenhydramine HCl (Diphenhydramine 50 Mg/Ml Sdv) 50 mg IVPUSH BEDTIME PRN PRN Reason: Insomnia Diphenhydramine HCl (Diphenhydramine 50 Mg/Ml Sdv) 25 mg IVPUSH Q6H [facility] Last Admin: 03/24/21 16:33 Dose: 25 mg Documented by: Sodium Chloride (Normal Saline) 1,000 mls @ 999 mls/hr IV .BOLUS ONE Stop: 03/23/21 16:57 Last Admin: 03/23/21 16:25 Dose: 999 mls/hr Documented by: Sodium Chloride (Normal Saline) 1,000 mls @ 125 mls/hr IV ASDIRECTED [facility] Stop: 03/25/21 01:29 Last Admin: 03/24/21 03:42 Dose: 125 mls/hr Documented by: Sodium Chloride (Normal Saline) 1,000 mls @ 150 mls/hr IV ASDIRECTED [facility] Last Admin: 03/24/21 12:30 Dose: 150 mls/hr Documented by: Magnesium Oxide (Magnesium Oxide 400 Mg Tab) 400 mg PO ONETIME ONE Stop: 03/23/21 16:58 Last Admin: 03/23/21 17:32 Dose: 400 mg Documented by: Magnesium Oxide (Magnesium Oxide 400 Mg Tab) 400 mg PO ONETIME ONE Stop: 03/23/21 20:01 Last Admin: 03/23/21 19:05 Dose: 400 mg Documented by: Magnesium Oxide (Magnesium Oxide 400 Mg Tab) 400 mg PO ONETIME ONE Stop: 03/24/21 06:01 Last Admin: 03/24/21 06:07 Dose: 400 mg Documented by: Metoclopramide HCl (Metoclopramide 10 Mg/2 Ml Sdv) 5 mg IVPUSH Q6H [facility] Last Admin: 03/24/21 16:33 Dose: 5 mg Documented by: Ondansetron HCl (Ondansetron 4 Mg/2 Ml Sdv) 4 mg IVPUSH ONETIME ONE Stop: 03/23/21 15:58 Last Admin: 03/23/21 16:25 Dose: 4 mg Documented by: Potassium Chloride (Potassium Chloride 10 Meq Tab.Er) 20 meq PO ONETIME ONE Stop: 03/23/21 16:57 Last Admin: 03/23/21 17:32 Dose: 20 meq Documented by: Potassium Chloride (Potassium Chloride 10 Meq Tab.Er) 20 meq PO ONETIME ONE Stop: 03/23/21 19:01 Last Admin: 03/23/21 19:05 Dose: 20 meq Documented by: Potassium Chloride (Potassium Chloride 10 Meq Tab.Er) 20 meq PO ONETIME ONE Stop: 03/23/21 21:01 Last Admin: 03/23/21 22:42 Dose: 20 meq Documented by: Potassium Chloride (Potassium Chloride 10 Meq Tab.Er) 20 meq PO ONETIME ONE Stop: 03/24/21 06:01 Last Admin: 03/24/21 06:08 Dose: 20 meq Documented by: Prochlorperazine Edisylate (Prochlorperazine 10 Mg/2 Ml Sdv) 5 mg IVPUSH Q6H PRN PRN Reason: Nausea Last Admin: 03/24/21 07:39 Dose: 5 mg Documented by: Promethazine HCl (Promethazine 25 Mg/Ml Sdv) 25 mg IM ONETIME ONE Stop: 03/23/21 16:21 Last Admin: 03/23/21 16:35 Dose: 25 mg Documented by: Promethazine HCl (Promethazine 25 Mg Tab) 25 mg PO Q6H [facility] Stop: 03/23/21 23:31 Last Admin: 03/23/21 18:40 Dose: Not Given Documented by: Promethazine HCl (Promethazine 25 Mg/Ml Sdv) 25 mg IM Q6H PRN PRN Reason: Vomiting Promethazine HCl (Promethazine 25 Mg Tab) 25 mg PO Q6H PRN PRN Reason: Nausea/Vomiting Last Admin: 03/23/21 22:43 Dose: 25 mg Documented by: Promethazine HCl (Promethazine 25 Mg Tab) 25 mg PO Q6H [facility] Stop: 03/24/21 04:46 Last Admin: 03/24/21 06:08 Dose: 25 mg Documented by: Sodium Chloride (Sodium Chloride 0.9% 10 Ml Syringe) 10 ml FLUSH ASDIRECTED PRN PRN Reason: Keep Vein Open Last Admin: 03/24/21 11:04 Dose: 10 ml Documented by: - Exam General: Reports: Alert, Oriented Neck: Reports: Supple Lungs: Reports: Clear to Auscultation, Normal Respiratory Effort Cardiovascular: Reports: Regular Rate, Regular Rhythm GI/Abdominal Exam: Soft, Non-Tender, No Distention, No Mass (Female) Exam: Deferred Rectal (Female) Exam: Deferred Back Exam: Reports: Normal Inspection, Full Range of Motion Extremities: Normal Inspection, Normal Range of Motion, Non-Tender, No Pedal Edema, Normal Capillary Refill Skin: Reports: Warm, Dry, Intact Neurological: Reports: No New Focal Deficit Psy/Mental Status: Reports: Alert, Normal Affect
== END 2021-03-24 18:59 | disposition home or self-care (01) ==
LOC: LL.ED 15:51 → LL.MS 17:01
PROVIDERS: ADMIT Emergency Medicine; ATTEND Physician Assistant
DX: O21.0 Mild hyperemesis gravidarum (principal); E86.0 Dehydration; O99.214 Obesity complicating childbirth; E87.6 Hypokalemia; E83.42 Hypomagnesemia; F43.10 Post-traumatic stress disorder, unspecified; F41.8 Other specified anxiety disorders; Z79.899 Other long term (current) drug therapy; Z20.822 Contact with and (suspected) exposure to COVID-19
CPT/HCPCS: 36415; 80048; 80053; 81001; 81025; 83735; 85025; 96372; 96374; 96375; 96376; 99217; 99220; 99284; 99284-25; A9270-GY; G0378; J0780; J1200; J2405; J2550; J2765; J7030; U0002

== ENCOUNTER 2021-05-20 20:17 | Observation (INO) | payer MEDICAID ==
[2021-05-20] MEDS ORDERED: diphenhydrAMINE 50 MG/ML SDV IVPUSH ONE (20:41)
[2021-05-20] MEDS ORDERED: Metoclopramide 10 MG/2 ML SDV IVPUSH ONE (20:41)
[2021-05-20] MEDS ORDERED: Thiamine 200 MG/2 ML MDV IVPUSH ONE (20:41)
[2021-05-20] MEDS ORDERED: Pantoprazole 40 MG in Sodium Chloride 0.9% 100 ML IV ONE (20:42)
[2021-05-20] MEDS ORDERED: Lactated Ringers 1,000 ML IV ONE ×2 (20:42→21:53)
--- NOTE | 2021-05-20 20:52 | EDM.PDOC ---
ED HPI GENERAL MEDICAL PROBLEM - General Chief Complaint: General Stated Complaint: nausea 2nd to Time Seen by Provider: 05/20/21 20:32 Source of Information: Reports: Patient - History of Present Illness INITIAL COMMENTS - FREE TEXT/NARRATIVE: Albert is a 30 y/o female who is brought to the ER by [facility] for nausea and vomiting in early . This has been an ongoing issue in her p regnancy. She is doing her care win [place] with the provider there. She recently had Zofran and Phenergan, but that has been of no help today. She has not really taken anything in and she reports vomiting 6-7 times today. Not voided much. No diarrhea. She did nto have this with her first . She had an US on Friday in [place] and a shea was noted. Left Lower Abdominal Pain Score (Numeric/FACES): 4 - Related Data Allergies Allergy/AdvReac Type Severity Reaction Status Date / Time No Known Allergies Allergy Verified 03/23/21 16:23 Home Meds: Home Meds Ondansetron [Zofran ODT] 4 mg PO Q6H PRN 05/20/21 [History] Pnv,Calcium 72/Iron/Folic Acid [ Vitamin Plus Low Iron] 1 tab PO DAILY 05/20/21 [History] Promethazine [Phenergan] 12.5 mg PO Q4H PRN 05/20/21 [History] Sertraline [Zoloft] 50 mg PO DAILY 05/20/21 [History] Past Medical History [employer] History: Reports: Hyperemesis : 2 Para: 1 Psychiatric History: Reports: Anxiety, Depression, PTSD Endocrine/Metabolic History: Reports: Obesity/BMI 30+ ED ROS GENERAL - Review of Systems Review Of Systems: See Below Constitutional: Reports: No Symptoms, Malaise, Weakness HEENT: Reports: No Symptoms Respiratory: Reports: No Symptoms Cardiovascular: Reports: No Symptoms Endocrine: Reports: No Symptoms GI/Abdominal: Reports: Decreased Appetite, Nausea, Vomiting : Reports: No Symptoms Musculoskeletal: Reports: No Symptoms Skin: Reports: No Symptoms Neurological: Reports: No Symptoms Psychiatric: Reports: No Symptoms Hematologic/Lymphatic: Reports: No Symptoms Immunologic: Reports: No Symptoms ED EXAM, GENERAL - Physical Exam Exam: See Below General Appearance: Alert, WD/WN, No Apparent Distress (Black female, pleasant) Ears: Hearing Grossly Normal Nose: Normal Inspection, Normal Mucosa Throat/Mouth: Normal Inspection, Normal Lips, Normal Oropharynx, Normal Voice Head: Atraumatic, Normocephalic Respiratory/Chest: No Respiratory Distress, Lungs Clear, Chest Non-Tender Cardiovascular: Normal Peripheral Pulses, Regular Rate, Rhythm, No Murmur GI/Abdominal: Soft, Abnormal Bowel Sounds (Decreased), Other (SRBt=112 by Doppler) (Female) Exam: Deferred Rectal (Female) Exam: Deferred Course - Vital Signs Text/Narrative:: 2031 The patient was seen by the [facility]. Labs ordered. THIERRY=11-19-2021 by LMP, confirmed by US last week making her 13weeks 6 days gestational age. IV fluids and Benadryl 25mg IVP, Reglan 10mg IVP, Thiamine 100mg IVP, and Protonix 40mg IVP ordered. 2150 Labs reviewed. CBC Hgb=11.0, Hct=32.4; CMP Uwcdzk=079, Potassium=3.4, BUN=1, Ore Digger=0.46, Glucose=68; Mg=1.5. Will replace mag with MgSO4 2gm IVPB. Also give Kdur 40Meq po x 1 dose if she can tolerate orally. 0 Has not yet voided. Somewhat better, but still feels weak and slightly nauseated. Will admit to Observation for fluids overnight and serial labs. See orders. Last Recorded V/S: Last Vital Signs Temp 37.1 C 05/20/21 21:54 Pulse 64 05/20/21 21:54 Resp 14 05/20/21 21:54 BP 111/87 05/20/21 21:54 Pulse Ox 98 05/20/21 21:54 - Orders/Labs/Meds Orders: Active Orders 24 hr Category Date Time Status UA RFX ELBERT AND CULT IF INDIC [URIN] Stat Lab 05/20/21 20:41 Ordered Lactated Ringers [Ringers, Lactated] 1,000 ml Med 05/20/21 21:53 Active IV .BOLUS Magnesium Sulfate/Water [Magnesium Sulfate in Water 2 Med 05/20/21 21:52 Active GM/50 ML] 2 gm Premix Bag 1 bag IV ONETIME Sodium Chloride 0.9% [Saline Flush] Med 05/20/21 20:41 Active 10 ml FLUSH ASDIRECTED PRN Saline Lock Insert [OM.PC] Stat Oth 05/20/21 20:41 Ordered Medication Orders Acetaminophen (Acetaminophen 325 Mg Tab) 650 mg PO Q4H PRN PRN Reason: Pain (Mild 1-3)/fever Magnesium Sulfate 2 gm/ Premix 50 mls @ 25 mls/hr IV ONETIME ONE Stop: 05/20/21 23:51 Lactated Ringer's (Ringers, Lactated) 1,000 mls @ 999 mls/hr IV .BOLUS ONE Stop: 05/20/21 22:53 Potassium Chloride/Sodium Chloride (Normal Saline With 20 Meq Kcl) 1,000 mls @ 150 mls/hr IV ASDIRECTED [facility] Metoclopramide HCl (Metoclopramide 10 Mg/2 Ml Sdv) 10 mg IVPUSH Q6H PRN PRN Reason: Nausea Ondansetron HCl (Ondansetron 4 Mg/2 Ml Sdv) 4 mg IVPUSH Q4H PRN PRN Reason: Nausea/Vomiting Pantoprazole Sodium (Pantoprazole 40 Mg Vial) 40 mg IV Q12HR [facility] Prochlorperazine Maleate (Prochlorperazine 5 Mg Tab) 5 mg PO Q6H PRN PRN Reason: Nausea/Vomiting Promethazine HCl (Promethazine 25 Mg/Ml Sdv) 12.5 mg IM Q6H PRN PRN Reason: Nausea/Vomiting Sertraline HCl (Sertraline 50 Mg Tab) 50 mg PO DAILY [facility] Sodium Chloride (Sodium Chloride 0.9% 10 Ml Syringe) 10 ml FLUSH ASDIRECTED PRN PRN Reason: Keep Vein Open Last Admin: 05/20/21 21:24 Dose: 10 ml Documented by: MARE Labs: Laboratory Tests 05/20/21 05/20/21 Range/Units 21:00 21:00 WBC 8.1 (4.0-10.2) K/uL RBC 4.04 (3.77-5.09) M/uL Hgb 11.0 L (11.7-15.5) g/dL Hct 32.4 L (34.0-46.0) % MCV 80.2 L (84.0-98.0) fL MCH 27.2 L (28.2-33.3) pg MCHC 34.0 (31.7-36.0) g/dL RDW 13.0 (11.2-14.1) % Plt Count 226 (150-350) K/uL Neut % (Auto) 61.9 (45.0-80.0) % Lymph % (Auto) 31.0 (10.0-50.0) % [place] % (Auto) 6.5 (2.0-14.0) % Eos % (Auto) 0.5 (0.0-5.0) % Baso % (Auto) 0.1 (0.0-2.0) % Neut # (Auto) 4.99 (1.40-7.00) K/uL Lymph # (Auto) 2.50 (0.50-3.50) K/uL [place] # (Auto) 0.52 (0.00-1.00) K/uL Eos # (Auto) 0.04 (0.00-0.50) K/uL Baso # (Auto) 0.01 (0.00-0.20) K/uL Sodium 135 L (136-145) mmol/L Potassium 3.4 L (3.5-5.1) mmol/L Chloride 102 (98-107) mmol/L Carbon Dioxide 21.6 (21.0-32.0) mmol/L Anion Gap 14.8 (7-15) meq/L BUN 1 L* (7-18) mg/dL Creatinine 0.46 L (0.51-1.17) mg/dL Est Cr Clr Drug Dosing TNP Estimated GFR (MDRD) > 60 mL/min Glucose 68 L (70-99) mg/dL Calcium 9.0 (8.5-10.1) mg/dL Magnesium 1.5 L (1.8-2.4) mg/dL Total Bilirubin 0.4 (0.2-1.0) mg/dL AST 17 (15-37) U/L ALT 21 (12-78) U/L Alkaline Phosphatase 59 (46-116) IU/L Total Protein 6.6 (6.4-8.2) g/dL Albumin 2.8 L (3.4-5.0) g/dL Amylase 51 (25-115) U/L Lipase 62 L (73-393) U/L Meds: Medications Generic Name Dose Route Start Last Admin Trade Name Freq PRN Reason Stop Dose Admin Acetaminophen 650 mg 05/20/21 22:30 Acetaminophen 325 Mg Tab PO Q4H PRN Pain (Mild 1-3)/fever Magnesium Sulfate 2 gm/ Premix 50 mls @ 25 mls/hr 05/20/21 21:52 IV 05/20/21 23:51 ONETIME ONE Lactated Ringer's 1,000 mls @ 999 mls/hr 05/20/21 21:53 Ringers, Lactated IV 05/20/21 22:53 .BOLUS ONE Potassium Chloride/Sodium Chloride 1,000 mls @ 150 mls/hr 05/20/21 22:45 Normal Saline With 20 Meq Kcl IV ASDIRECTED [facility] Metoclopramide HCl 10 mg 05/20/21 22:37 Metoclopramide 10 Mg/2 Ml Sdv IVPUSH Q6H PRN Nausea Ondansetron HCl 4 mg 05/20/21 22:30 Ondansetron 4 Mg/2 Ml Sdv IVPUSH Q4H PRN Nausea/Vomiting Pantoprazole Sodium 40 mg 05/21/21 08:00 Pantoprazole 40 Mg Vial IV Q12HR [facility] Prochlorperazine Maleate 5 mg 05/20/21 22:37 Prochlorperazine 5 Mg Tab PO Q6H PRN Nausea/Vomiting Promethazine HCl 12.5 mg 05/20/21 22:30 Promethazine 25 Mg/Ml Sdv IM Q6H PRN Nausea/Vomiting Sertraline HCl 50 mg 05/21/21 08:00 Sertraline 50 Mg Tab PO DAILY [facility] Sodium Chloride 10 ml 05/20/21 20:41 05/20/21 21:24 Sodium Chloride 0.9% 10 Ml Syringe FLUSH 10 ml ASDIRECTED PRN Administration Keep Vein Open Discontinued Medications Generic Name Dose Route Start Last Admin Trade Name Baudilioq PRN Reason Stop Dose Admin Diphenhydramine HCl 25 mg 05/20/21 20:41 05/20/21 21:10 Diphenhydramine 50 Mg/Ml Sdv IVPUSH 05/20/21 20:42 25 mg ONETIME ONE Administration Lactated Ringer's 1,000 mls @ 999 mls/hr 05/20/21 20:42 05/20/21 21:12 Ringers, Lactated IV 05/20/21 21:42 999 mls/hr .BOLUS ONE Administration Pantoprazole Sodium 40 mg/ 100 mls @ 200 mls/hr 05/20/21 20:42 05/20/21 21:07 Sodium Chloride IV 05/20/21 21:11 200 mls/hr ONETIME ONE Administration Metoclopramide HCl 20 mg 05/20/21 20:41 05/20/21 21:10 Metoclopramide 10 Mg/2 Ml Sdv IVPUSH 05/20/21 20:42 20 mg ONETIME ONE Administration Potassium Chloride 40 meq 05/20/21 22:29 Potassium Chloride 20 Meq Tab.Er PO 05/20/21 22:30 ONETIME ONE Thiamine HCl 100 mg 05/20/21 20:41 05/20/21 21:10 Thiamine 200 Mg/2 Ml Mdv IVPUSH 05/20/21 20:42 100 mg ONETIME ONE Administration Departure - Departure Time of Disposition: 22:39 Disposition: Refer to Observation Clinical Impression: Hyperemesis affecting , antepartum Qualifiers: Weeks of gestation: 13 weeks Qualified Code(s): Z3A.13 - 13 weeks gestation of - Discharge Information Sepsis Event Note (ED) - Focused Exam Vital Signs: Vital Signs Temp Pulse Resp BP Pulse Ox 05/20/21 21:54 37.1 C 64 14 111/87 98 - Problem List & Annotations (1) Hyperemesis affecting , antepartum SNOMED Code(s): 04184161 Code(s): O21.0 - MILD HYPEREMESIS GRAVIDARUM Status: Acute Current Visit: No Annotation/Comment:: Admit to Observation for IV fluids and further meds. Will repeat labs on the AM. (2) SNOMED Code(s): 51484656 Code(s): Z34.90 - ENCNTR FOR SUPRVSN OF NORMAL , UNSP, UNSP TRIMESTER Status: Acute Current Visit: No Annotation/Comment:: 13w6d today - Problem List Review Problem List Initiated/Reviewed/Updated: Yes - My Orders Last 24 Hours: My Active Orders 05/20/21 20:41 UA RFX ELBERT AND CULT IF INDIC [URIN] Stat Sodium Chloride 0.9% [Saline Flush] 10 ml FLUSH ASDIRECTED PRN Saline Lock Insert [OM.PC] Stat 05/20/21 21:52 Magnesium Sulfate/Water [Magnesium Sulfate in Water 2 GM/50 ML] 2 gm Premix Bag 1 bag IV ONETIME 05/20/21 21:53 Lactated Ringers [Ringers, Lactated] 1,000 ml IV .BOLUS - Assessment/Plan Admission H&P: Please use this note as an admission H&P Last 24 Hours: My Active Orders 05/20/21 20:41 UA RFX ELBERT AND CULT IF INDIC [URIN] Stat Sodium Chloride 0.9% [Saline Flush] 10 ml FLUSH ASDIRECTED PRN Saline Lock Insert [OM.PC] Stat 05/20/21 21:52 Magnesium Sulfate/Water [Magnesium Sulfate in Water 2 GM/50 ML] 2 gm Premix Bag 1 bag IV ONETIME 05/20/21 21:53 Lactated Ringers [Ringers, Lactated] 1,000 ml IV .BOLUS Plan: See Above
[2021-05-20 21:21] LABS: CHLORIDE,CL 102 mmol/L (98-107); SODIUM,NA 135 mmol/L (136-145)
[2021-05-20] MEDS: Sodium Chloride 0.9% 10 ML Syringe FLUSH PRN (21:24)
[2021-05-20 21:29] LABS: ANION GAP 14.8 meq/L (7-15)
[2021-05-20] MEDS ORDERED: Magnesium Sulfate/Water 2 GM in Premix Bag 1 BAG IV ONE (21:52)
[2021-05-20] MEDS ORDERED: Potassium Chloride 20 MEQ Tab.ER PO ONE (22:29)
[2021-05-20] MEDS ORDERED: Ondansetron 4 MG/2 ML SDV IVPUSH PRN (22:30)
[2021-05-20] MEDS ORDERED: Promethazine 25 MG/ML SDV IM PRN (22:30)
[2021-05-20] MEDS ORDERED: Acetaminophen 325 MG Tab PO PRN (22:30)
[2021-05-20] MEDS ORDERED: Metoclopramide 10 MG/2 ML SDV IVPUSH PRN (22:37)
[2021-05-20] MEDS: Prochlorperazine 5 MG Tab PO PRN (23:48)
[2021-05-21] MEDS: NS + KCl 20mEq/L 1,000 ML IV SCH ×3 (01:03→15:07)
[2021-05-21] MEDS: Prochlorperazine 5 MG Tab PO PRN (07:40)
[2021-05-21] MEDS: Pantoprazole 40 MG Vial IV SCH ×2 (07:40→20:44)
[2021-05-21] MEDS ORDERED: Sertraline 50 MG Tab PO SCH (08:00)
[2021-05-21 08:05] LABS: ANION GAP 8.8 meq/L (7-15); CHLORIDE,CL 107 mmol/L (98-107); SODIUM,NA 137 mmol/L (136-145)
[2021-05-21] MEDS ORDERED: Magnesium Sulfate/Water 2 GM in Premix Bag 1 BAG IV ONE (10:30)
--- NOTE | 2021-05-21 10:35 | PCM.PN ---
- General Info Date of Service: 05/21/21 Admission Dx/Problem (Free Text): 1)Nausea & Vomiting in Subjective Update: Reports feeling somewhat better. Still vomiting after drinking clear liquids. Did not receive scheduled antiemetics last night. - Review of Systems General: Reports: No Symptoms HEENT: Reports: No Symptoms Pulmonary: Reports: No Symptoms Cardiovascular: Reports: No Symptoms Gastrointestinal: Reports: Nausea, Vomiting Genitourinary: Reports: No Symptoms Musculoskeletal: Reports: No Symptoms Skin: Reports: No Symptoms Neurological: Reports: No Symptoms Psychiatric: Reports: No Symptoms - Patient Data Vitals - Most Recent: Last Vital Signs Temp 36.7 C 05/21/21 08:00 Pulse 82 05/21/21 08:00 Resp 16 05/21/21 08:00 BP 112/69 05/21/21 08:00 Pulse Ox 100 05/21/21 08:00 Weight - Most Recent: 101.469 kg I&O - Last 24 Hours: Intake & Output 05/20/21 05/21/21 05/21/21 22:59 06:59 14:59 Intake Total 2800 50 Output Total 400 800 Balance -400 2000 50 Lab Results Last 24 Hours: Laboratory Results - last 24 hr 05/20/21 05/20/21 05/20/21 Range/Units 20:41 21:00 21:00 WBC 8.1 (4.0-10.2) K/uL RBC 4.04 (3.77-5.09) M/uL Hgb 11.0 L (11.7-15.5) g/dL Hct 32.4 L (34.0-46.0) % MCV 80.2 L (84.0-98.0) fL MCH 27.2 L (28.2-33.3) pg MCHC 34.0 (31.7-36.0) g/dL RDW 13.0 (11.2-14.1) % Plt Count 226 (150-350) K/uL Neut % (Auto) 61.9 (45.0-80.0) % Lymph % (Auto) 31.0 (10.0-50.0) % [place] % (Auto) 6.5 (2.0-14.0) % Eos % (Auto) 0.5 (0.0-5.0) % Baso % (Auto) 0.1 (0.0-2.0) % Neut # (Auto) 4.99 (1.40-7.00) K/uL Lymph # (Auto) 2.50 (0.50-3.50) K/uL [place] # (Auto) 0.52 (0.00-1.00) K/uL Eos # (Auto) 0.04 (0.00-0.50) K/uL Baso # (Auto) 0.01 (0.00-0.20) K/uL Sodium 135 L (136-145) mmol/L Potassium 3.4 L (3.5-5.1) mmol/L Chloride 102 (98-107) mmol/L Carbon Dioxide 21.6 (21.0-32.0) mmol/L Anion Gap 14.8 (7-15) meq/L BUN 1 L* (7-18) mg/dL Creatinine 0.46 L (0.51-1.17) mg/dL Est Cr Clr Drug Dosing TNP Estimated GFR (MDRD) > 60 mL/min Glucose 68 L (70-99) mg/dL Calcium 9.0 (8.5-10.1) mg/dL Magnesium 1.5 L (1.8-2.4) mg/dL Total Bilirubin 0.4 (0.2-1.0) mg/dL AST 17 (15-37) U/L ALT 21 (12-78) U/L Alkaline Phosphatase 59 (46-116) IU/L Total Protein 6.6 (6.4-8.2) g/dL Albumin 2.8 L (3.4-5.0) g/dL Amylase 51 (25-115) U/L Lipase 62 L (73-393) U/L Specimen Type Urincc Urine Color Yellow Urine Appearance Clear Urine pH 6.0 (5.0-9.0) Ur Specific [place] 1.020 (1.005-1.030) Urine Protein Negative (NEGATIVE) mg/dL Urine Glucose (UA) Negative (NEGATIVE) mg/dL Urine Ketones >=160 H (NEGATIVE) mg/dL Urine Occult Blood Negative (NEGATIVE) Urine Nitrite Negative (NEGATIVE) Urine Bilirubin Small H (NEGATIVE) Urine Urobilinogen 1.0 (0.2-1.0) E.U./dL Ur Leukocyte Esterase Negative (NEGATIVE) 05/21/21 05/21/21 Range/Units 07:40 07:40 WBC 6.2 (4.0-10.2) K/uL RBC 4.04 (3.77-5.09) M/uL Hgb 11.0 L (11.7-15.5) g/dL Hct 32.7 L (34.0-46.0) % MCV 80.9 L (84.0-98.0) fL MCH 27.2 L (28.2-33.3) pg MCHC 33.6 (31.7-36.0) g/dL RDW 13.1 (11.2-14.1) % Plt Count 208 (150-350) K/uL Neut % (Auto) 60.6 (45.0-80.0) % Lymph % (Auto) 31.0 (10.0-50.0) % [place] % (Auto) 7.3 (2.0-14.0) % Eos % (Auto) 0.8 (0.0-5.0) % Baso % (Auto) 0.3 (0.0-2.0) % Neut # (Auto) 3.75 (1.40-7.00) K/uL Lymph # (Auto) 1.92 (0.50-3.50) K/uL [place] # (Auto) 0.45 (0.00-1.00) K/uL Eos # (Auto) 0.05 (0.00-0.50) K/uL Baso # (Auto) 0.02 (0.00-0.20) K/uL Sodium 137 (136-145) mmol/L Potassium 4.2 (3.5-5.1) mmol/L Chloride 107 (98-107) mmol/L Carbon Dioxide 21.2 (21.0-32.0) mmol/L Anion Gap 8.8 (7-15) meq/L BUN 0 L* (7-18) mg/dL Creatinine 0.41 L (0.51-1.17) mg/dL Est Cr Clr Drug Dosing TNP Estimated GFR (MDRD) > 60 mL/min Glucose 78 (70-99) mg/dL Calcium 8.6 (8.5-10.1) mg/dL Magnesium 1.7 L (1.8-2.4) mg/dL Total Bilirubin (0.2-1.0) mg/dL AST (15-37) U/L ALT (12-78) U/L Alkaline Phosphatase (46-116) IU/L Total Protein (6.4-8.2) g/dL Albumin (3.4-5.0) g/dL Amylase (25-115) U/L Lipase (73-393) U/L Specimen Type Urine Color Urine Appearance Urine pH (5.0-9.0) Ur Specific [place] (1.005-1.030) Urine Protein (NEGATIVE) mg/dL Urine Glucose (UA) (NEGATIVE) mg/dL Urine Ketones (NEGATIVE) mg/dL Urine Occult Blood (NEGATIVE) Urine Nitrite (NEGATIVE) Urine Bilirubin (NEGATIVE) Urine Urobilinogen (0.2-1.0) E.U./dL Ur Leukocyte Esterase (NEGATIVE) Med Orders - Current: Current Medications Acetaminophen (Acetaminophen 325 Mg Tab) 650 mg PO Q4H PRN PRN Reason: Pain (Mild 1-3)/fever Potassium Chloride/Sodium Chloride (Normal Saline With 20 Meq Kcl) 1,000 mls @ 150 mls/hr IV ASDIRECTED [facility] Last Admin: 05/21/21 07:52 Dose: 150 mls/hr Documented by: Prochlorperazine Edisylate 10 (mg/ Sodium Chloride) 102 mls @ 200 mls/hr IV Q6H PRN PRN Reason: Nausea/Vomiting Magnesium Sulfate 2 gm/ Premix 50 mls @ 25 mls/hr IV ONETIME ONE Stop: 05/21/21 12:29 Metoclopramide HCl (Metoclopramide 10 Mg/2 Ml Sdv) 10 mg IVPUSH Q6H [facility] Ondansetron HCl (Ondansetron 4 Mg/2 Ml Sdv) 4 mg IVPUSH Q4H PRN PRN Reason: Nausea/Vomiting Ondansetron HCl (Ondansetron 4 Mg/2 Ml Sdv) 4 mg IVPUSH Q6H PRN PRN Reason: Nausea/Vomiting Pantoprazole Sodium (Pantoprazole 40 Mg Vial) 40 mg IV Q12HR [facility] Last Admin: 05/21/21 07:40 Dose: 40 mg Documented by: Prochlorperazine Maleate (Prochlorperazine 5 Mg Tab) 5 mg PO Q6H PRN PRN Reason: Nausea/Vomiting Last Admin: 05/21/21 07:40 Dose: 5 mg Documented by: Promethazine HCl (Promethazine 25 Mg/Ml Sdv) 12.5 mg IM Q6H PRN PRN Reason: Nausea/Vomiting Sertraline HCl (Sertraline 50 Mg Tab) 50 mg PO DAILY [facility] Last Admin: 05/21/21 07:40 Dose: 50 mg Documented by: Sodium Chloride (Sodium Chloride 0.9% 10 Ml Syringe) 10 ml FLUSH ASDIRECTED PRN PRN Reason: Keep Vein Open Last Admin: 05/20/21 21:24 Dose: 10 ml Documented by: Discontinued Medications Diphenhydramine HCl (Diphenhydramine 50 Mg/Ml Sdv) 25 mg IVPUSH ONETIME ONE Stop: 05/20/21 20:42 Last Admin: 05/20/21 21:10 Dose: 25 mg Documented by: Lactated Ringer's (Ringers, Lactated) 1,000 mls @ 999 mls/hr IV .BOLUS ONE Stop: 05/20/21 21:42 Last Admin: 05/20/21 21:12 Dose: 999 mls/hr Documented by: Pantoprazole Sodium 40 mg/ (Sodium Chloride) 100 mls @ 200 mls/hr IV ONETIME ONE Stop: 05/20/21 21:11 Last Admin: 05/20/21 21:07 Dose: 200 mls/hr Documented by: Magnesium Sulfate 2 gm/ Premix 50 mls @ 25 mls/hr IV ONETIME ONE Stop: 05/20/21 23:51 Last Admin: 05/20/21 23:14 Dose: 25 mls/hr Documented by: Lactated Ringer's (Ringers, Lactated) 1,000 mls @ 999 mls/hr IV .BOLUS ONE Stop: 05/20/21 22:53 Last Admin: 05/20/21 23:14 Dose: 999 mls/hr Documented by: Metoclopramide HCl (Metoclopramide 10 Mg/2 Ml Sdv) 20 mg IVPUSH ONETIME ONE Stop: 05/20/21 20:42 Last Admin: 05/20/21 21:10 Dose: 20 mg Documented by: Metoclopramide HCl (Metoclopramide 10 Mg/2 Ml Sdv) 10 mg IVPUSH Q6H PRN PRN Reason: Nausea Potassium Chloride (Potassium Chloride 20 Meq Tab.Er) 40 meq PO ONETIME ONE Stop: 05/20/21 22:30 Last Admin: 05/20/21 23:14 Dose: 40 meq Documented by: Thiamine HCl (Thiamine 200 Mg/2 Ml Mdv) 100 mg IVPUSH ONETIME ONE Stop: 05/20/21 20:42 Last Admin: 05/20/21 21:10 Dose: 100 mg Documented by: - Patient Data Lab Results Last 24 hrs: Laboratory Results - last 24 hr 05/20/21 05/20/21 05/20/21 Range/Units 20:41 21:00 21:00 WBC 8.1 (4.0-10.2) K/uL RBC 4.04 (3.77-5.09) M/uL Hgb 11.0 L (11.7-15.5) g/dL Hct 32.4 L (34.0-46.0) % MCV 80.2 L (84.0-98.0) fL MCH 27.2 L (28.2-33.3) pg MCHC 34.0 (31.7-36.0) g/dL RDW 13.0 (11.2-14.1) % Plt Count 226 (150-350) K/uL Neut % (Auto) 61.9 (45.0-80.0) % Lymph % (Auto) 31.0 (10.0-50.0) % [place] % (Auto) 6.5 (2.0-14.0) % Eos % (Auto) 0.5 (0.0-5.0) % Baso % (Auto) 0.1 (0.0-2.0) % Neut # (Auto) 4.99 (1.40-7.00) K/uL Lymph # (Auto) 2.50 (0.50-3.50) K/uL [place] # (Auto) 0.52 (0.00-1.00) K/uL Eos # (Auto) 0.04 (0.00-0.50) K/uL Baso # (Auto) 0.01 (0.00-0.20) K/uL Sodium 135 L (136-145) mmol/L Potassium 3.4 L (3.5-5.1) mmol/L Chloride 102 (98-107) mmol/L Carbon Dioxide 21.6 (21.0-32.0) mmol/L Anion Gap 14.8 (7-15) meq/L BUN 1 L* (7-18) mg/dL Creatinine 0.46 L (0.51-1.17) mg/dL Est Cr Clr Drug Dosing TNP Estimated GFR (MDRD) > 60 mL/min Glucose 68 L (70-99) mg/dL Calcium 9.0 (8.5-10.1) mg/dL Magnesium 1.5 L (1.8-2.4) mg/dL Total Bilirubin 0.4 (0.2-1.0) mg/dL AST 17 (15-37) U/L ALT 21 (12-78) U/L Alkaline Phosphatase 59 (46-116) IU/L Total Protein 6.6 (6.4-8.2) g/dL Albumin 2.8 L (3.4-5.0) g/dL Amylase 51 (25-115) U/L Lipase 62 L (73-393) U/L Specimen Type Urincc Urine Color Yellow Urine Appearance Clear Urine pH 6.0 (5.0-9.0) Ur Specific [place] 1.020 (1.005-1.030) Urine Protein Negative (NEGATIVE) mg/dL Urine Glucose (UA) Negative (NEGATIVE) mg/dL Urine Ketones >=160 H (NEGATIVE) mg/dL Urine Occult Blood Negative (NEGATIVE) Urine Nitrite Negative (NEGATIVE) Urine Bilirubin Small H (NEGATIVE) Urine Urobilinogen 1.0 (0.2-1.0) E.U./dL Ur Leukocyte Esterase Negative (NEGATIVE) 05/21/21 05/21/21 Range/Units 07:40 07:40 WBC 6.2 (4.0-10.2) K/uL RBC 4.04 (3.77-5.09) M/uL Hgb 11.0 L (11.7-15.5) g/dL Hct 32.7 L (34.0-46.0) % MCV 80.9 L (84.0-98.0) fL MCH 27.2 L (28.2-33.3) pg MCHC 33.6 (31.7-36.0) g/dL RDW 13.1 (11.2-14.1) % Plt Count 208 (150-350) K/uL Neut % (Auto) 60.6 (45.0-80.0) % Lymph % (Auto) 31.0 (10.0-50.0) % [place] % (Auto) 7.3 (2.0-14.0) % Eos % (Auto) 0.8 (0.0-5.0) % Baso % (Auto) 0.3 (0.0-2.0) % Neut # (Auto) 3.75 (1.40-7.00) K/uL Lymph # (Auto) 1.92 (0.50-3.50) K/uL [place] # (Auto) 0.45 (0.00-1.00) K/uL Eos # (Auto) 0.05 (0.00-0.50) K/uL Baso # (Auto) 0.02 (0.00-0.20) K/uL Sodium 137 (136-145) mmol/L Potassium 4.2 (3.5-5.1) mmol/L Chloride 107 (98-107) mmol/L Carbon Dioxide 21.2 (21.0-32.0) mmol/L Anion Gap 8.8 (7-15) meq/L BUN 0 L* (7-18) mg/dL Creatinine 0.41 L (0.51-1.17) mg/dL Est Cr Clr Drug Dosing TNP Estimated GFR (MDRD) > 60 mL/min Glucose 78 (70-99) mg/dL Calcium 8.6 (8.5-10.1) mg/dL Magnesium 1.7 L (1.8-2.4) mg/dL Total Bilirubin (0.2-1.0) mg/dL AST (15-37) U/L ALT (12-78) U/L Alkaline Phosphatase (46-116) IU/L Total Protein (6.4-8.2) g/dL Albumin (3.4-5.0) g/dL Amylase (25-115) U/L Lipase (73-393) U/L Specimen Type Urine Color Urine Appearance Urine pH (5.0-9.0) Ur Specific [place] (1.005-1.030) Urine Protein (NEGATIVE) mg/dL Urine Glucose (UA) (NEGATIVE) mg/dL Urine Ketones (NEGATIVE) mg/dL Urine Occult Blood (NEGATIVE) Urine Nitrite (NEGATIVE) Urine Bilirubin (NEGATIVE) Urine Urobilinogen (0.2-1.0) E.U./dL Ur Leukocyte Esterase (NEGATIVE) Result Diagrams: 05/21/21 07:40 05/21/21 07:40 Sepsis Event Note - Evaluation Sepsis Screening Result: No Definite Risk - Focused Exam Vital Signs: Vital Signs Temp Pulse Resp BP Pulse Ox 05/21/21 08:00 36.7 C 82 16 112/69 100 05/20/21 23:58 36.8 C 70 14 105/65 98 - Problem List & Annotations (1) Hyperemesis affecting , antepartum SNOMED Code(s): 02730620 Code(s): O21.0 - MILD HYPEREMESIS GRAVIDARUM Status: Acute Current Visit: No Annotation/Comment:: Labs reveiwed. Magnesium=1.7, will given another replacement dose. Still vomiting. Potassium=4.2 this AM. Scheduling Reglan and Zofran and will reassess. Feeling better, consider home later tonight. (2) SNOMED Code(s): 53534372 Code(s): Z34.90 - ENCNTR FOR SUPRVSN OF NORMAL , UNSP, UNSP TRIMESTER Status: Acute Current Visit: Yes Qualifiers: Weeks of gestation: 13 weeks Qualified Code(s): Z3A.13 - 13 weeks gestation of Annotation/Comment:: 14w0d today - Problem List Review Problem List Initiated/Reviewed/Updated: Yes - My Orders Last 24 Hours: My Active Orders 05/20/21 20:41 Sodium Chloride 0.9% [Saline Flush] 10 ml FLUSH ASDIRECTED PRN Saline Lock Insert [OM.PC] Stat 05/20/21 22:30 Patient Status [ADT] Routine Height and Weight [RC] DAILY Oxygen Therapy [RC] PRN Up ad Juanita [RC] 08,20 Vital Signs [RC] Q4HR Acetaminophen [TylenoL] 650 mg PO Q4H PRN Ondansetron [Zofran] 4 mg IVPUSH Q4H PRN Promethazine [Phenergan] 12.5 mg IM Q6H PRN Resuscitation Status Routine 05/20/21 22:32 Intake and Output [RC] QSHIFT 05/20/21 22:37 Prochlorperazine [Compazine] 5 mg PO Q6H PRN 05/20/21 22:45 NS + KCl 20mEq/L [Normal Saline with 20 mEq KCl] 1,000 ml IV ASDIRECTED 05/21/21 Breakfast Clear Liquid Diet [DIET] 05/21/21 08:00 Pantoprazole [ProTONIX IV] 40 mg IV Q12HR Sertraline [Zoloft] 50 mg PO DAILY 05/21/21 10:26 Ondansetron [Zofran] 4 mg IVPUSH Q6H PRN 05/21/21 10:27 Prochlorperazine [Compazine] 10 mg Sodium Chloride 0.9% [Normal Saline] 100 ml IV Q6H 05/21/21 10:30 Magnesium Sulfate/Water [Magnesium Sulfate in Water 2 GM/50 ML] 2 gm Premix Bag 1 bag IV ONETIME Metoclopramide [Reglan] 10 mg IVPUSH Q6H - Plan Plan:: See Above
[2021-05-21] MEDS: Metoclopramide 10 MG/2 ML SDV IVPUSH SCH ×2 (10:51→17:27)
[2021-05-21] MEDS ORDERED: Ondansetron 4 MG/2 ML SDV IVPUSH PRN (11:00)
[2021-05-21] MEDS ORDERED: Prochlorperazine 10 MG in Sodium Chloride 0.9% 100 ML IV PRN (11:00)
[2021-05-21] MEDS: Ondansetron 4 MG/2 ML SDV IVPUSH SCH ×3 (14:37→20:44)
--- NOTE | 2021-05-21 20:24 | PCM.PN ---
- General Info Date of Service: 05/21/21 Admission Dx/Problem (Free Text): 1)Nausea & Vomiting in Subjective Update: Feeling much better and has not vomited since this AM. Tolerated a brat fro supper, no vomiting. Ready to go home. Functional Status: Reports: Tolerating Diet - Review of Systems General: Reports: No Symptoms HEENT: Reports: No Symptoms Pulmonary: Reports: No Symptoms Cardiovascular: Reports: No Symptoms Gastrointestinal: Reports: No Symptoms Genitourinary: Reports: No Symptoms Musculoskeletal: Reports: No Symptoms Skin: Reports: No Symptoms Neurological: Reports: No Symptoms Psychiatric: Reports: No Symptoms - Patient Data Vitals - Most Recent: Last Vital Signs Temp 36.7 C 05/21/21 16:00 Pulse 72 05/21/21 16:00 Resp 16 05/21/21 16:00 BP 91/52 L 05/21/21 16:00 Pulse Ox 100 05/21/21 16:00 Weight - Most Recent: 101.469 kg I&O - Last 24 Hours: Intake & Output 05/21/21 05/21/21 05/21/21 06:59 14:59 22:59 Intake Total 2800 50 Output Total 800 Balance 2000 50 Lab Results Last 24 Hours: Laboratory Results - last 24 hr 05/20/21 05/20/21 05/20/21 Range/Units 20:41 21:00 21:00 WBC 8.1 (4.0-10.2) K/uL RBC 4.04 (3.77-5.09) M/uL Hgb 11.0 L (11.7-15.5) g/dL Hct 32.4 L (34.0-46.0) % MCV 80.2 L (84.0-98.0) fL MCH 27.2 L (28.2-33.3) pg MCHC 34.0 (31.7-36.0) g/dL RDW 13.0 (11.2-14.1) % Plt Count 226 (150-350) K/uL Neut % (Auto) 61.9 (45.0-80.0) % Lymph % (Auto) 31.0 (10.0-50.0) % [place] % (Auto) 6.5 (2.0-14.0) % Eos % (Auto) 0.5 (0.0-5.0) % Baso % (Auto) 0.1 (0.0-2.0) % Neut # (Auto) 4.99 (1.40-7.00) K/uL Lymph # (Auto) 2.50 (0.50-3.50) K/uL [place] # (Auto) 0.52 (0.00-1.00) K/uL Eos # (Auto) 0.04 (0.00-0.50) K/uL Baso # (Auto) 0.01 (0.00-0.20) K/uL Sodium 135 L (136-145) mmol/L Potassium 3.4 L (3.5-5.1) mmol/L Chloride 102 (98-107) mmol/L Carbon Dioxide 21.6 (21.0-32.0) mmol/L Anion Gap 14.8 (7-15) meq/L BUN 1 L* (7-18) mg/dL Creatinine 0.46 L (0.51-1.17) mg/dL Est Cr Clr Drug Dosing TNP Estimated GFR (MDRD) > 60 mL/min Glucose 68 L (70-99) mg/dL Calcium 9.0 (8.5-10.1) mg/dL Magnesium 1.5 L (1.8-2.4) mg/dL Total Bilirubin 0.4 (0.2-1.0) mg/dL AST 17 (15-37) U/L ALT 21 (12-78) U/L Alkaline Phosphatase 59 (46-116) IU/L Total Protein 6.6 (6.4-8.2) g/dL Albumin 2.8 L (3.4-5.0) g/dL Amylase 51 (25-115) U/L Lipase 62 L (73-393) U/L Specimen Type Urincc Urine Color Yellow Urine Appearance Clear Urine pH 6.0 (5.0-9.0) Ur Specific [place] 1.020 (1.005-1.030) Urine Protein Negative (NEGATIVE) mg/dL Urine Glucose (UA) Negative (NEGATIVE) mg/dL Urine Ketones >=160 H (NEGATIVE) mg/dL Urine Occult Blood Negative (NEGATIVE) Urine Nitrite Negative (NEGATIVE) Urine Bilirubin Small H (NEGATIVE) Urine Urobilinogen 1.0 (0.2-1.0) E.U./dL Ur Leukocyte Esterase Negative (NEGATIVE) 05/21/21 05/21/21 Range/Units 07:40 07:40 WBC 6.2 (4.0-10.2) K/uL RBC 4.04 (3.77-5.09) M/uL Hgb 11.0 L (11.7-15.5) g/dL Hct 32.7 L (34.0-46.0) % MCV 80.9 L (84.0-98.0) fL MCH 27.2 L (28.2-33.3) pg MCHC 33.6 (31.7-36.0) g/dL RDW 13.1 (11.2-14.1) % Plt Count 208 (150-350) K/uL Neut % (Auto) 60.6 (45.0-80.0) % Lymph % (Auto) 31.0 (10.0-50.0) % [place] % (Auto) 7.3 (2.0-14.0) % Eos % (Auto) 0.8 (0.0-5.0) % Baso % (Auto) 0.3 (0.0-2.0) % Neut # (Auto) 3.75 (1.40-7.00) K/uL Lymph # (Auto) 1.92 (0.50-3.50) K/uL [place] # (Auto) 0.45 (0.00-1.00) K/uL Eos # (Auto) 0.05 (0.00-0.50) K/uL Baso # (Auto) 0.02 (0.00-0.20) K/uL Sodium 137 (136-145) mmol/L Potassium 4.2 (3.5-5.1) mmol/L Chloride 107 (98-107) mmol/L Carbon Dioxide 21.2 (21.0-32.0) mmol/L Anion Gap 8.8 (7-15) meq/L BUN 0 L* (7-18) mg/dL Creatinine 0.41 L (0.51-1.17) mg/dL Est Cr Clr Drug Dosing TNP Estimated GFR (MDRD) > 60 mL/min Glucose 78 (70-99) mg/dL Calcium 8.6 (8.5-10.1) mg/dL Magnesium 1.7 L (1.8-2.4) mg/dL Total Bilirubin (0.2-1.0) mg/dL AST (15-37) U/L ALT (12-78) U/L Alkaline Phosphatase (46-116) IU/L Total Protein (6.4-8.2) g/dL Albumin (3.4-5.0) g/dL Amylase (25-115) U/L Lipase (73-393) U/L Specimen Type Urine Color Urine Appearance Urine pH (5.0-9.0) Ur Specific [place] (1.005-1.030) Urine Protein (NEGATIVE) mg/dL Urine Glucose (UA) (NEGATIVE) mg/dL Urine Ketones (NEGATIVE) mg/dL Urine Occult Blood (NEGATIVE) Urine Nitrite (NEGATIVE) Urine Bilirubin (NEGATIVE) Urine Urobilinogen (0.2-1.0) E.U./dL Ur Leukocyte Esterase (NEGATIVE) Med Orders - Current: Current Medications Acetaminophen (Acetaminophen 325 Mg Tab) 650 mg PO Q4H PRN PRN Reason: Pain (Mild 1-3)/fever Potassium Chloride/Sodium Chloride (Normal Saline With 20 Meq Kcl) 1,000 mls @ 150 mls/hr IV ASDIRECTED [facility] Last Admin: 05/21/21 15:07 Dose: 150 mls/hr Documented by: Prochlorperazine Edisylate 10 (mg/ Sodium Chloride) 102 mls @ 200 mls/hr IV Q6H PRN PRN Reason: Nausea/Vomiting Metoclopramide HCl (Metoclopramide 10 Mg/2 Ml Sdv) 10 mg IVPUSH Q6H [facility] Last Admin: 05/21/21 17:27 Dose: 10 mg Documented by: Ondansetron HCl (Ondansetron 4 Mg/2 Ml Sdv) 4 mg IVPUSH Q6H PRN PRN Reason: Nausea/Vomiting Ondansetron HCl (Ondansetron 4 Mg/2 Ml Sdv) 4 mg IVPUSH Q4H [facility] Last Admin: 05/21/21 17:27 Dose: 4 mg Documented by: Pantoprazole Sodium (Pantoprazole 40 Mg Vial) 40 mg IV Q12HR [facility] Last Admin: 05/21/21 07:40 Dose: 40 mg Documented by: Prochlorperazine Maleate (Prochlorperazine 5 Mg Tab) 5 mg PO Q6H PRN PRN Reason: Nausea/Vomiting Last Admin: 05/21/21 07:40 Dose: 5 mg Documented by: Promethazine HCl (Promethazine 25 Mg/Ml Sdv) 12.5 mg IM Q6H PRN PRN Reason: Nausea/Vomiting Sertraline HCl (Sertraline 50 Mg Tab) 50 mg PO DAILY [facility] Last Admin: 05/21/21 07:40 Dose: 50 mg Documented by: Sodium Chloride (Sodium Chloride 0.9% 10 Ml Syringe) 10 ml FLUSH ASDIRECTED PRN PRN Reason: Keep Vein Open Last Admin: 05/20/21 21:24 Dose: 10 ml Documented by: Discontinued Medications Diphenhydramine HCl (Diphenhydramine 50 Mg/Ml Sdv) 25 mg IVPUSH ONETIME ONE Stop: 05/20/21 20:42 Last Admin: 05/20/21 21:10 Dose: 25 mg Documented by: Lactated Ringer's (Ringers, Lactated) 1,000 mls @ 999 mls/hr IV .BOLUS ONE Stop: 05/20/21 21:42 Last Admin: 05/20/21 21:12 Dose: 999 mls/hr Documented by: Pantoprazole Sodium 40 mg/ (Sodium Chloride) 100 mls @ 200 mls/hr IV ONETIME ONE Stop: 05/20/21 21:11 Last Admin: 05/20/21 21:07 Dose: 200 mls/hr Documented by: Magnesium Sulfate 2 gm/ Premix 50 mls @ 25 mls/hr IV ONETIME ONE Stop: 05/20/21 23:51 Last Admin: 05/20/21 23:14 Dose: 25 mls/hr Documented by: Lactated Ringer's (Ringers, Lactated) 1,000 mls @ 999 mls/hr IV .BOLUS ONE Stop: 05/20/21 22:53 Last Admin: 05/20/21 23:14 Dose: 999 mls/hr Documented by: Magnesium Sulfate 2 gm/ Premix 50 mls @ 25 mls/hr IV ONETIME ONE Stop: 05/21/21 12:29 Last Admin: 05/21/21 10:51 Dose: 25 mls/hr Documented by: Metoclopramide HCl (Metoclopramide 10 Mg/2 Ml Sdv) 20 mg IVPUSH ONETIME ONE Stop: 05/20/21 20:42 Last Admin: 05/20/21 21:10 Dose: 20 mg Documented by: Metoclopramide HCl (Metoclopramide 10 Mg/2 Ml Sdv) 10 mg IVPUSH Q6H PRN PRN Reason: Nausea Ondansetron HCl (Ondansetron 4 Mg/2 Ml Sdv) 4 mg IVPUSH Q4H PRN PRN Reason: Nausea/Vomiting Potassium Chloride (Potassium Chloride 20 Meq Tab.Er) 40 meq PO ONETIME ONE Stop: 05/20/21 22:30 Last Admin: 05/20/21 23:14 Dose: 40 meq Documented by: Thiamine HCl (Thiamine 200 Mg/2 Ml Mdv) 100 mg IVPUSH ONETIME ONE Stop: 05/20/21 20:42 Last Admin: 05/20/21 21:10 Dose: 100 mg Documented by: - Exam General: Alert, Oriented HEENT: Mucous Membr. Moist/Flushing Neck: Supple Lungs: Normal Respiratory Effort GI/Abdominal Exam: Normal Bowel Sounds, Soft, Other (Female) Exam: Deferred Back Exam: Normal Inspection, Full Range of Motion Extremities: Normal Inspection, Normal Range of Motion, Normal Capillary Refill Skin: Warm, Dry, Intact Neurological: No New Focal Deficit Psy/Mental Status: Alert, Normal Affect, Normal Mood - Patient Data Lab Results Last 24 hrs: Laboratory Results - last 24 hr 05/20/21 05/20/21 05/20/21 Range/Units 20:41 21:00 21:00 WBC 8.1 (4.0-10.2) K/uL RBC 4.04 (3.77-5.09) M/uL Hgb 11.0 L (11.7-15.5) g/dL Hct 32.4 L (34.0-46.0) % MCV 80.2 L (84.0-98.0) fL MCH 27.2 L (28.2-33.3) pg MCHC 34.0 (31.7-36.0) g/dL RDW 13.0 (11.2-14.1) % Plt Count 226 (150-350) K/uL Neut % (Auto) 61.9 (45.0-80.0) % Lymph % (Auto) 31.0 (10.0-50.0) % [place] % (Auto) 6.5 (2.0-14.0) % Eos % (Auto) 0.5 (0.0-5.0) % Baso % (Auto) 0.1 (0.0-2.0) % Neut # (Auto) 4.99 (1.40-7.00) K/uL Lymph # (Auto) 2.50 (0.50-3.50) K/uL [place] # (Auto) 0.52 (0.00-1.00) K/uL Eos # (Auto) 0.04 (0.00-0.50) K/uL Baso # (Auto) 0.01 (0.00-0.20) K/uL Sodium 135 L (136-145) mmol/L Potassium 3.4 L (3.5-5.1) mmol/L Chloride 102 (98-107) mmol/L Carbon Dioxide 21.6 (21.0-32.0) mmol/L Anion Gap 14.8 (7-15) meq/L BUN 1 L* (7-18) mg/dL Creatinine 0.46 L (0.51-1.17) mg/dL Est Cr Clr Drug Dosing TNP Estimated GFR (MDRD) > 60 mL/min Glucose 68 L (70-99) mg/dL Calcium 9.0 (8.5-10.1) mg/dL Magnesium 1.5 L (1.8-2.4) mg/dL Total Bilirubin 0.4 (0.2-1.0) mg/dL AST 17 (15-37) U/L ALT 21 (12-78) U/L Alkaline Phosphatase 59 (46-116) IU/L Total Protein 6.6 (6.4-8.2) g/dL Albumin 2.8 L (3.4-5.0) g/dL Amylase 51 (25-115) U/L Lipase 62 L (73-393) U/L Specimen Type Urincc Urine Color Yellow Urine Appearance Clear Urine pH 6.0 (5.0-9.0) Ur Specific [place] 1.020 (1.005-1.030) Urine Protein Negative (NEGATIVE) mg/dL Urine Glucose (UA) Negative (NEGATIVE) mg/dL Urine Ketones >=160 H (NEGATIVE) mg/dL Urine Occult Blood Negative (NEGATIVE) Urine Nitrite Negative (NEGATIVE) Urine Bilirubin Small H (NEGATIVE) Urine Urobilinogen 1.0 (0.2-1.0) E.U./dL Ur Leukocyte Esterase Negative (NEGATIVE) 05/21/21 05/21/21 Range/Units 07:40 07:40 WBC 6.2 (4.0-10.2) K/uL RBC 4.04 (3.77-5.09) M/uL Hgb 11.0 L (11.7-15.5) g/dL Hct 32.7 L (34.0-46.0) % MCV 80.9 L (84.0-98.0) fL MCH 27.2 L (28.2-33.3) pg MCHC 33.6 (31.7-36.0) g/dL RDW 13.1 (11.2-14.1) % Plt Count 208 (150-350) K/uL Neut % (Auto) 60.6 (45.0-80.0) % Lymph % (Auto) 31.0 (10.0-50.0) % [place] % (Auto) 7.3 (2.0-14.0) % Eos % (Auto) 0.8 (0.0-5.0) % Baso % (Auto) 0.3 (0.0-2.0) % Neut # (Auto) 3.75 (1.40-7.00) K/uL Lymph # (Auto) 1.92 (0.50-3.50) K/uL [place] # (Auto) 0.45 (0.00-1.00) K/uL Eos # (Auto) 0.05 (0.00-0.50) K/uL Baso # (Auto) 0.02 (0.00-0.20) K/uL Sodium 137 (136-145) mmol/L Potassium 4.2 (3.5-5.1) mmol/L Chloride 107 (98-107) mmol/L Carbon Dioxide 21.2 (21.0-32.0) mmol/L Anion Gap 8.8 (7-15) meq/L BUN 0 L* (7-18) mg/dL Creatinine 0.41 L (0.51-1.17) mg/dL Est Cr Clr Drug Dosing TNP Estimated GFR (MDRD) > 60 mL/min Glucose 78 (70-99) mg/dL Calcium 8.6 (8.5-10.1) mg/dL Magnesium 1.7 L (1.8-2.4) mg/dL Total Bilirubin (0.2-1.0) mg/dL AST (15-37) U/L ALT (12-78) U/L Alkaline Phosphatase (46-116) IU/L Total Protein (6.4-8.2) g/dL Albumin (3.4-5.0) g/dL Amylase (25-115) U/L Lipase (73-393) U/L Specimen Type Urine Color Urine Appearance Urine pH (5.0-9.0) Ur Specific [place] (1.005-1.030) Urine Protein (NEGATIVE) mg/dL Urine Glucose (UA) (NEGATIVE) mg/dL Urine Ketones (NEGATIVE) mg/dL Urine Occult Blood (NEGATIVE) Urine Nitrite (NEGATIVE) Urine Bilirubin (NEGATIVE) Urine Urobilinogen (0.2-1.0) E.U./dL Ur Leukocyte Esterase (NEGATIVE) Result Diagrams: 05/21/21 07:40 05/21/21 07:40 Sepsis Event Note - Evaluation Sepsis Screening Result: No Definite Risk - Focused Exam Vital Signs: Vital Signs Temp Pulse Resp BP Pulse Ox 05/21/21 16:00 36.7 C 72 16 91/52 L 100 05/21/21 12:00 36.6 C 71 16 106/60 100 - Problem List & Annotations (1) Hyperemesis affecting , antepartum SNOMED Code(s): 90076704 Code(s): O21.0 - MILD HYPEREMESIS GRAVIDARUM Status: Acute Current Visit: No Annotation/Comment:: Received another dose of Magnesium today along with IV potassium in the fluids. Feelign better and able to tolerate regular diet for supper. Ready to go home. Will discharge tonight. Has Zofran and Promethazine oral meds at home. (2) SNOMED Code(s): 78641187 Code(s): Z34.90 - ENCNTR FOR SUPRVSN OF NORMAL , UNSP, UNSP TRIMESTER Status: Acute Current Visit: Yes Qualifiers: Weeks of gestation: 13 weeks Qualified Code(s): Z3A.13 - 13 weeks gestation of Annotation/Comment:: 14w0d today - Problem List Review Problem List Initiated/Reviewed/Updated: Yes - My Orders Last 24 Hours: My Active Orders 05/20/21 20:41 Sodium Chloride 0.9% [Saline Flush] 10 ml FLUSH ASDIRECTED PRN Saline Lock Insert [OM.PC] Stat 05/20/21 22:30 Patient Status [ADT] Routine Height and Weight [RC] DAILY Oxygen Therapy [RC] PRN Up ad Juanita [RC] 08,20 Vital Signs [RC] Q4HR Acetaminophen [TylenoL] 650 mg PO Q4H PRN Promethazine [Phenergan] 12.5 mg IM Q6H PRN Resuscitation Status Routine 05/20/21 22:32 Intake and Output [RC] QSHIFT 05/20/21 22:37 Prochlorperazine [Compazine] 5 mg PO Q6H PRN 05/20/21 22:45 NS + KCl 20mEq/L [Normal Saline with 20 mEq KCl] 1,000 ml IV ASDIRECTED 05/21/21 Breakfast Clear Liquid Diet [DIET] 05/21/21 08:00 Pantoprazole [ProTONIX IV] 40 mg IV Q12HR Sertraline [Zoloft] 50 mg PO DAILY 05/21/21 11:00 Metoclopramide [Reglan] 10 mg IVPUSH Q6H Ondansetron [Zofran] 4 mg IVPUSH Q6H PRN Prochlorperazine [Compazine] 10 mg Sodium Chloride 0.9% [Normal Saline] 100 ml IV Q6H 05/21/21 14:00 Ondansetron [Zofran] 4 mg IVPUSH Q4H - Plan Plan:: See Above Discharge to home Will follow up with her provider in the next couple days.
[2021-05-21] MEDS ORDERED: Promethazine 25 MG Tab PO PRN (20:26)
[2021-05-21] MEDS ORDERED: Ondansetron 4 MG Tab.DIS PO SCH (20:30)
[2021-05-21] MEDS: Sodium Chloride 0.9% 10 ML Syringe FLUSH PRN ×2 (20:44→20:45)
== END 2021-05-21 21:02 | disposition home or self-care (01) ==
LOC: LL.ED 20:17 → LL.MS 22:25
PROVIDERS: ADMIT Nurse Practitioner Family; ATTEND Nurse Practitioner Family
DX: O21.0 Mild hyperemesis gravidarum (principal); O99.210 Obesity complicating pregnancy, unspecified trimester; Z79.899 Other long term (current) drug therapy
CPT/HCPCS: 36415; 80048; 80053; 81003; 82150; 83690; 83735; 85025; 96361; 96365; 96366; 96375; 96376; A9270; C9113; G0378; J1200; J2405; J2765; J3411; J3475; J3480; J7120; Q0164; 96367; 99285-25